=== PATIENT | female | born 1965 | race Caucasian/White ===

== ENCOUNTER → 2019-08-22 12:26 | Outpatient (CLI) | payer BC, SELFPAY ==
--- NOTE | ~2019-08-22 | MM_ITS ---
EXAMINATION: MM screening peter BI w yashira HISTORY: Screening mammogram TECHNIQUE: Craniocaudal and mediolateral oblique 3-D tomosynthesis images were obtained and synthetic 2-D images were generated. CAD analysis was submitted and interpreted. COMPARISON: 05/18/2015, 10/05/2010, 12/04/2008 BREAST PARENCHYMAL COMPOSITION: The breasts are heterogeneously dense, which may obscure small masses . FINDINGS: RIGHT BREAST: There is no evidence of suspicious mass, calcification, or architectural distortion to suggest malignancy. There has been no significant interval change. LEFT BREAST: There are grouped, indeterminate calcifications in the middle third of the slightly uppe r breast. In addition, there is questionable axillary lymphadenopathy. IMPRESSION: 1. Indeterminate left breast calcifications with possible axillary adenopathy. 2. Additional mammographic views and possible breast ultrasound are recommended. BI-RADS Category 0: Incomplete: Needs additional imaging evaluation. Reviewed, dictated and finalized at location A. E SLITTER AND INSPECTOR IMPRESSION: 1. Indeterminate left breast calcifications with possible axillary adenopathy. 2. Additional mammographic views and possible breast ultrasound are recommended . BI-RADS Category 0: Incomplete: Needs additional imaging evaluation.
== END ==
PROVIDERS: PCP Internal Medicine; Visit Provider Internal Medicine
DX: Z12.31 Encounter for screening mammogram for malignant neoplasm of breast (principal); R92.8 Other abnormal and inconclusive findings on diagnostic imaging of breast
CPT/HCPCS: 77063; 77067

== ENCOUNTER → 2019-09-09 08:32 | Outpatient (CLI) | payer BC, SELFPAY ==
--- NOTE | ~2019-09-09 | MMUS_ITS ---
EXAMINATION: MM diagnostic mammo unilat LT, US breast LT complete HISTORY: Follow-up left breast calcifications and axillary adenopathy TECHNIQUE: Additional 3-D tomosynthesis images of the left breast were performed and synthetic 2-D im ages were generated. CAD analysis was submitted and interpreted. High resolution left breast ultrasou nd was performed. COMPARISON: 08/22/2019 FINDINGS: MAMMOGRAPHIC FINDINGS: Breast composed of scattered areas of fibroglandular density. There is a cluster of pleomorphic calci fications in the upper central aspect of the left breast, middle third. There is a small mass in the lower outer quadrant of the left breast containing calcifications near the nipple measuring 5 mm. Left breast ultrasound: At 1:00, 5 cm from the nipple, there is a hypoechoic mass with oval configuration, parallel orientati on with echogenic hilum measuring 5 mm, compatible compatible with intramammary lymph node. At 2:00, 10 cm from the nipple, there is a hypoechoic mass with effacement of the fatty hilum measuring 1.6 x 1.6 x 1.3 cm, suspicious for pathologic lymph node. At 3:00, 3 cm from the nipple, there is a 5 mm be nign-appearing complicated cysts. At 11:00, 3 cm from the nipple, there is a poorly circumscribed hyp oechoic mass with irregular margins and marginal vascularity measuring 5 x 4 x 5 mm. IMPRESSION: 1. Clustered pleomorphic left breast calcifications. Stereotactic left breast biopsy recommended. 2. Abnormal sonographic masses in the left breast at 2:00, 10 cm from the nipple and 11:00, 3 cm from the nipple. Ultrasound-guided biopsy of these masses recommended. BI-RADS CATEGORY 4-SUSPICIOUS ABNORMALITY Reviewed, dictated and finalized at location A. FOOD SALES ASSISTANT IMPRESSION: 1. Clustered pleomorphic left breast calcifications. Stereotactic left breast b iopsy recommended. 2. Abnormal sonographic masses in the left breast at 2:00, 10 cm from the nippl e and 11:00, 3 cm from the nipple. Ultrasound-guided biopsy of these masses rec ommended. BI-RADS CATEGORY 4-SUSPICIOUS ABNORMALITY
== END ==
PROVIDERS: PCP Internal Medicine; Visit Provider Internal Medicine
DX: R92.8 Other abnormal and inconclusive findings on diagnostic imaging of breast (principal)
CPT/HCPCS: 76641; 77065

== ENCOUNTER 2020-08-30 12:47 | Emergency (ER) | payer BC, SELFPAY ==
[2020-08-30 12:48] VITALS: BP 141/82; PULSE 105; RESP 20; TEMP 36.2; O2SAT 99
--- NOTE | 2020-08-30 13:00 | ED.ABDPAIN ---
HPI - Abdominal Pain General Chief Complaint: Abdominal Pain Stated Complaint: left flank pain Time Seen by Provider: 08/30/20 12:54 Source: patient Mode of arrival: ambulatory Limitations: no limitations History of Present Illness HPI narrative: A 54-year-old female comes into the emergency department with complaints of pain starting in her left lower back. Patient states this happened when she was sitting on the couch. She states that it was a strong stabbing/grabbing pain. Patient denies any radiation of the pain. She denies any pain going into her abdominal cavity. She stated when it started it slowly started to go up her lower back. Patient denies any nausea, vomiting any dysuria, fever or chills. Related Data Allergies Allergy/AdvReac Type Severity Reaction Status Date / Time No Known Allergies Allergy Unverified 05/14/18 11:06 Review of Systems Review of Systems: Narrative: CONSTITUTIONAL: Denies fever, chills, or sweats. EYES: Denies visual changes, redness, or discharge. ENT: Denies rhinorrhea, congestion, sore throat, or otalgia. CARDIOVASCULAR: Denies chest pain, palpitations, or edema. RESPIRATORY: Denies cough or dyspnea. GASTROINTESTINAL: Denies abdominal pain, nausea, vomiting, or diarrhea. GENITOURINARY: Denies dysuria or hematuria. SKIN: Denies rash or itching. MUSCULOSKELETAL: Denies joint pain, or myalgia. Endorses low back pain on the left NEUROLOGIC: Denies headache, numbness, dizziness, or weakness. PSYCHIATRIC: Denies anxiety or depression. [facility] Social History Social History Gender identity (if verbalized by the patient): Female Exam Narrative: Exam Narrative: GENERAL: Well-appearing, well-nourished, and in no acute distress. HEAD: Normocephalic, atraumatic. EYES: PERRLA and EOMI. ENT: Nares clear, no rhinorrhea or epistaxis. Mucous membranes moist. NECK: Supple. No adenopathy or masses. No carotid bruits or JVD CHEST: Clear to auscultation. No respiratory distress. No wheezes rales or rhonchi HEART: Regular rate and rhythm. No murmur heard. Normal peripheral pulses. ABDOMEN: Soft, nontender, nondistended, normal active bowel sounds. EXTREMITIES: Normal range of motion. No edema. TTP at the bruising rotoleft lower back over the PSIS and going towards the lateral aspect of the lower back. SKIN: Warm, dry, no rash. NEURO: No focal deficits. Alert and oriented x3. PSYCH: Normal mood and affect. Course Vital Signs Vital signs: Vital Signs Temperature 36.2 C L 08/30/20 12:48 Pulse Rate 105 H 08/30/20 12:48 Respiratory Rate 20 08/30/20 12:48 Blood Pressure 141/82 H 08/30/20 12:48 Pulse Oximetry 99 08/30/20 12:48 Temperature 36.2 C L 08/30/20 12:48 Pulse Rate 105 H 08/30/20 12:48 Respiratory Rate 20 08/30/20 12:48 Blood Pressure 141/82 H 08/30/20 12:48 Pulse Oximetry 99 08/30/20 12:48 MDM - Abdominal Pain MDM Narrative Medical decision making narrative: By time I had interviewed the patient shortly after she was roomed she admitted that she had taken a hydrocodone tablet left over from 8 dental procedure. Patient states that this had apparently kicked and she was feeling much better. Patient is denying pain currently. She states that initially it was a 10 out of 10, it is now down to a 2 out of 10. Discussed other possible etiologies with the patient, including possible abdominal pathology or kidney stones. Patient had no CVA tenderness, nor abdominal tenderness. The tenderness seemed isolated to the quadratus lumborum area on the left. Her pain does appear to be musculoskeletal in origin. At this time I do not feel the patient warrants any urine, blood or imaging studies. Discussed this at length with the patient, she does agree. She states that she is feeling much better, will take a prescription for anti-inflammatories and muscle relaxers and is ready to go home. Discharge Plan Discharge Clinica
[2020-08-30 13:54] VITALS: BP 136/76; PULSE 97; RESP 19; O2SAT 100
== END 2020-08-30 13:56 | disposition home or self-care (01) ==
LOC: ANHED 13:19
PROVIDERS: Emergency Provider Emergency Medicine; PCP Internal Medicine
DX: M62.830 Muscle spasm of back (principal)
CPT/HCPCS: 99283

== ENCOUNTER 2020-10-19 12:21 | Inpatient (IN) | payer BC, SELFPAY ==
--- NOTE | ~2020-10-19 | XR_ITS ---
EXAMINATION: XR chest 1V portable INDICATION: History of breast cancer TECHNIQUE: Portable AP chest at 1657 hours COMPARISON: None available FINDINGS: The lungs are free of acute opacities. There is no pleural effusion or pneumothorax. The ca rdiomediastinal silhouette is normal. IMPRESSION: 1. No acute cardiopulmonary abnormality. Reviewed, dictated and finalized at location A.
--- NOTE | ~2020-10-19 | XR_ITS ---
EXAMINATION: XR ankle RT min 3V DATE: 10/19/2020 12:40 INDICATION: Right ankle pain. TECHNIQUE: 4 views of right ankle were obtained. COMPARISON: None. FINDINGS: There is a transverse fracture of distal fibula with medial aspect of the fracture line 10 mm distal to the level of the tibial plafond in near-anatomic alignment. There is mild osteoarthritis of talonavicular joint. There are enthesophytes at the posterior and plantar aspects of calcaneal tu berosity. Ankle soft tissue swelling is noted. IMPRESSION: 1. Transverse fracture of lateral malleolus. Reviewed, dictated and finalized at location A.
--- NOTE | ~2020-10-19 | XR_ITS ---
EXAMINATION: XR ankle LT min 3V DATE: 10/19/2020 12:40 INDICATION: Left ankle pain post fall TECHNIQUE: Anteroposterior, oblique and lateral views of the left ankle were obtained. COMPARISON: None. FINDINGS: There is an oblique fracture through the distal fibula with a fracture plane exiting medially near th e level of the tibiotalar joint. There is 4 mm posterolateral displacement. Transverse fracture acros s the medial malleolus also at the level of the tibiotalar joint line. There is mild varus angulation resulting in distraction along the medial margin of the fracture with separation of the cortices ana rosa sures approximately 7-8 mm following 1-2 mm separation of the cortical margins along the articular si de of the fracture. Corresponding slight lateral subluxation of the talar dome with respect to the ti bial plafond and with mild widening of the cephalad aspect of the medial clear space. No fracture of the posterior malleolus or talar dome. Joint spaces at the left ankle and visualized mid and hindfoot appear relatively preserved. Moderate-sized Achilles and plantar calcaneal spurs. There is talar angel k along the dorsal neck of the talus. There is however no evident tarsal coalition. Soft tissue swell ing about the ankle and lower calf. IMPRESSION: 1. Mildly displaced fractures of the left medial and lateral malleoli in a dodson B2 injury pattern. Reviewed, dictated and finalized at location B. IMPRESSION: 1. Mildly displaced fractures of the left medial and lateral malleoli in a webe r B2 injury pattern.
--- NOTE | ~2020-10-19 | XR_ITS ---
EXAMINATION: XR surgery orthopedic EXAM DATE: 10/22/2020 12:36 INDICATION: Left ankle ORIF. TECHNIQUE: Fluoroscopy used during XR surgery orthopedic performed by Dr. Kt Irizarry MD. Rad iologist was not present for the imaging or procedure. Total fluoroscopic time of 1.1 minutes. A tot al of 3 images obtained for the exam. The DAP for this procedure was 0.027 mGym2. FINDINGS: Images of the left ankle demonstrate a lateral fibular plate with supporting screws bridgi ng a fibular metaphyseal fracture. There is also medial malleolar base fracture with supporting screw . Distal tibiofibular syndesmotic repair anchors. Correlate with procedure note. IMPRESSION: Fluoroscopy used during left ankle ORIF. Reviewed, dictated and finalized at location A.
[2020-10-19 12:23] VITALS: BP 140/80; PULSE 99; RESP 20; TEMP 36.8; O2SAT 100
--- NOTE | 2020-10-19 13:42 | ED.GENADULT ---
HPI - General Adult General Chief complaint: Extremity Injury, Lower Stated complaint: ankle Time Seen by Provider: 10/19/20 12:37 Source: patient Mode of arrival: EMS Limitations: no limitations History of Present Illness HPI narrative: Patient presents with chief complaint of bilateral ankle pain left worse than right after walking around falling. Patient explains she was able to bear some weight on the right ankle but none on the left. Patient states due to the pain they called 911 to come to the emergency department. Patient reports 3 years ago she fractured her left ankle but it did not require surgical repair and she was managed by Dr. Coronado. Patient reports past medical history of breast cancer in remission and stress incontinence. Related Data Home Medications Medication Instructions Recorded Confirmed letrozole 2.5 mg PO QPM 10/19/20 10/19/20 tolterodine 4 mg PO HS 10/19/20 10/19/20 Allergies Allergy/AdvReac Type Severity Reaction Status Date / Time No Known Allergies Allergy Verified 10/19/20 15:48 Review of Systems Review of Systems: Narrative: CONSTITUTIONAL: Denies fever, chills, or sweats. EYES: Denies visual changes, redness, or discharge. ENT: Denies rhinorrhea, congestion, sore throat, or otalgia. CARDIOVASCULAR: Denies chest pain, palpitations, or edema. RESPIRATORY: Denies cough or dyspnea. GASTROINTESTINAL: Denies abdominal pain, nausea, vomiting, or diarrhea. GENITOURINARY: Denies dysuria or hematuria. SKIN: Denies rash or itching. MUSCULOSKELETAL: Reports bilateral ankle pain denies back pain, joint pain, or myalgia. NEUROLOGIC: Denies headache, numbness, dizziness, or weakness. PSYCHIATRIC: Denies anxiety or depression. [facility] Past Medical History Medical History (Updated 10/19/20 @ 16:58 by MEENA Swain) Breast cancer 36 treatments of radiation Completed end of February Closed left ankle fracture Closed right ankle fracture Fallen bladder Throat cancer Chemotherapy 2008 Throat mass Surgical History Surgical History (Updated 10/19/20 @ 16:50 by MEENA Swain) H/O lumpectomy December 2019 at [facility] (2 lumps on the left, 1 lump on the right) History of hysterectomy 2002 Hx of tonsillectomy 2007 Social History Social History (Updated 10/19/20 @ 16:47 by MEENA Swain) Social History: Patient lives at home with her family. 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 She works for the [employer]. Smoking status: Never smoker Alcohol intake: never Substance use: never Living arrangements: with family Additional living arrangements comments: /Daughter Occupation/Education: occupation Additional occupation/education comments: [employer] Gender identity (if verbalized by the patient): Female Sexual Orientation (if Verbalized by the Patient): Straight or Heterosexual Spiritual care concerns: No Agree to blood products: Yes Exam Narrative: Exam Narrative: GENERAL: Well-appearing, well-nourished, and in no acute distress. HEAD: Normocephalic, atraumatic. EYES: PERRLA and EOMI. CHEST: Clear to auscultation. No respiratory distress. No wheezes rales or rhonchi HEART: Regular rate and rhythm. No murmur heard. Normal peripheral pulses. EXTREMITIES: Pain and swelling to bilateral ankles left worse than right. The swelling on the right is to the lateral malleolus swelling on the left is bilateral. Dorsalis pedis pulses intact bilaterally. There is no open wounds. Normal range of motion. No edema. SKIN: Warm, dry, no rash. NEURO: No focal deficits. Alert and oriented x3. PSYCH: Normal mood and affect. Course Vital Signs Vital signs: Vital Signs Temperature 98.2 F 10/19/20 12:23 Pulse Rate 99 10/19/20 12:23 Respiratory Rate 20 10/19/20 12:23 Blood Pressure 140/80 10/19/20 12:23 Pulse Oximetry 100 10/19/20 12:23 Temperature 98.5 F 04
[2020-10-19 15:18] VITALS: BP 133/76; PULSE 93; RESP 16; O2SAT 99
[2020-10-19] MEDS: MORPHINE SULFATE (*CRX) 4 MG/ML INJ IV PUSH (15:26)
--- NOTE | 2020-10-19 15:40 | ADMGEN ---
This patient, Nani Gonsalves [facility], was admitted to 2 Medical Room 240-01. Patient/family oriented to hospital policies and general routines including ID bracelet, bed and alarms, visiting hours, pain management, procedures, bathroom and other care routines, personal items, smoking policy, room service/diet, and visiting hours. Information on how to activate the Rapid Response Team has been discussed. Patient/Family are encouraged to report perceived risks to care and to ask questions if they do not understand what they are told or what they should do.
[2020-10-19 15:54] VITALS: BP 143/65; PULSE 93; RESP 16; TEMP 36.9; O2SAT 100
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
[2020-10-19] MEDS: MORPHINE SULFATE (*CRX) 2 MG/ML INJ IV PUSH (17:03)
[2020-10-19] MEDS: DOCUSATE SODIUM 100 MG CAPSULE PO (17:08)
[2020-10-19] MEDS: LETROZOLE (*CHEMO) 2.5 MG TABLET PO (18:19)
[2020-10-19] MEDS: HYDROcodone/acetaminophen (*CRX) 5-325 MG TABLET 1 TAB PO ×2 (18:20→22:45)
[2020-10-19] MEDS: TOLTERODINE TARTRATE LA 4 MG CAP.ER.24H PO (20:48)
[2020-10-19 22:00] VITALS: BP 133/75; PULSE 88; RESP 18; TEMP 36.7; O2SAT 97
[2020-10-20 06:00] VITALS: BP 125/76; PULSE 98; RESP 16; TEMP 36.7; O2SAT 97
[2020-10-20] MEDS: HYDROcodone/acetaminophen (*CRX) 5-325 MG TABLET 1 TAB PO (07:06)
[2020-10-20] MEDS: DOCUSATE SODIUM 100 MG CAPSULE PO ×2 (07:47→17:44)
[2020-10-20] MEDS: MORPHINE SULFATE (*CRX) 2 MG/ML INJ IV PUSH ×2 (09:54→13:24)
--- NOTE | 2020-10-20 09:55 | PCPTNOTE ---
Attempted PT evaluation this AM, patient having increased pain and still waiting for CAM boot to perform transfers. Will try back later in morning.
--- NOTE | 2020-10-20 10:21 | PC.NURSE ---
On 10/20/20, the student, [Shayy Garcia ], provided care and completed [facility] documentation on this patient. I have reviewed the student's documentation and agree with the findings.
--- NOTE | 2020-10-20 10:50 | PM.PNORT ---
Progress Note: A&P Assessment and Plan (1) Closed left ankle fracture: Qualifiers: Encounter type: initial encounter Qualified Code(s): S82.892A - Other fracture of left lower leg, initial encounter for closed fracture Code(s): S82.892A - Other fracture of left lower leg, initial encounter for closed fracture Status: Acute Assessment and Plan: Continue PT/OT. NWB LLE. Fall Risk. Ice. Continue pain control. Elevate LLE on pillows. Continue splint. Pending improvement in pain control, recommend mobilization with PT/OT. Patient will require surgical intervention pending improvement in swelling. Discussed nonoperative and operative treatment options with the patient. The patients questions were answered. The patient desires operative treatment. Discussed ORIF Left Trimalleolar Ankle Fracture Risks of surgery including but not limited to neurovascular damage, wound complications, blood clot, pulmonary embolus, stroke, myocardial infarction, anesthetic risks up to and including were reviewed. Continued pain and possible dysfunction were explained. No guarantees were offered. The patient understands and wishes to proceed. Plan: ORIF Left Trimalleolar Ankle Fracture by Dr. Irizarry. NPO at midnight . Continue pain control, ice. PT/OT in the interim. NWB LLE. PWB RLE (2) Closed right ankle fracture: Qualifiers: Encounter type: initial encounter Qualified Code(s): S82.891A - Other fracture of right lower leg, initial encounter for closed fracture Code(s): S82.891A - Other fracture of right lower leg, initial encounter for closed fracture Status: Acute Assessment and Plan: Patient transitioned to fracture boot today to the RLE. Continue pain control. Ice. Elevate on pillows. PT/OT. PWB with Fracture Boot RLE. Walker. Continue conservative treatment at this time. (3) Bilateral ankle fractures: Qualifiers: Encounter type: initial encounter Fracture type: closed Qualified Code(s): S82.891A - Other fracture of right lower leg, initial encounter for closed fracture; S82.892A - Other fracture of left lower leg, initial encounter for closed fracture Code(s): S82.891A - Other fracture of right lower leg, initial encounter for closed fracture; S82.892A - Other fracture of left lower leg, initial encounter for closed fracture Status: Acute (4) Breast cancer: Qualifiers: Breast location: unspecified site of breast Estrogen receptor status: unspecified Patient sex: female Laterality: bilateral Qualified Code(s): C50.911 - Malignant neoplasm of unspecified site of right female breast; C50.912 - Malignant neoplasm of unspecified site of left female breast Code(s): C50.919 - Malignant neoplasm of unspecified site of unspecified female breast Status: Inactive Assessment and Plan: Patient is currently in remission. She is taking oral chemotherapy daily. Medication resumed. (5) Fallen bladder: Code(s): N81.10 - Cystocele, unspecified Status: Inactive Assessment and Plan: Continue medication. Subjective Subjective Date/Time Seen: 10/20/20 0930 Patient laying in bed in pain. Reports significant left ankle pain. Inability to work with PT this AM due to pain. Last pain pill given at 0800. Discussed with RN, recommended ibuprofen or IV morphine as ordered. No new complaints. Review of Systems Constitutional: Constitutional: Reports no additional constitutional complaints, Denies chills, Denies fatigue, Denies fever(s), Denies headache(s) and Denies weakness Eyes: Eyes: Denies change in vision ENT: Reports Normal hearing present and Denies headache(s) Cardiovascular: Cardiovascular: Denies chest pain and Denies dyspnea Respiratory: Respiratory: Denies cough, Denies dyspnea and Denies wheezing Gastrointestinal: Gastrointestinal: Denies constipation, Denies diarrhea, Denies nausea a
[2020-10-20] MEDS: IBUPROFEN IV 400 MG in SODIUM CHLORIDE 0.9% IV 100 ML 200 MG IVPB (13:29)
[2020-10-20 14:00] VITALS: BP 141/65; PULSE 90; RESP 16; TEMP 36.3; O2SAT 95
[2020-10-20] MEDS: HYDROcodone/acetaminophen (*CRX) 7.5-325 MG TABLET 1 TAB PO ×2 (15:45→20:24)
--- NOTE | 2020-10-20 16:05 | PM.PNORT ---
Progress Note: A&P Assessment and Plan (1) Closed right ankle fracture: Qualifiers: Encounter type: initial encounter Qualified Code(s): S82.891A - Other fracture of right lower leg, initial encounter for closed fracture Code(s): S82.891A - Other fracture of right lower leg, initial encounter for closed fracture Status: Acute Assessment and Plan: patient fit with fracture boot. May be weight-bearing as tolerated. Continue with edema control. Physical therapy / occupational therapy for transfers. Plan for continued conservative treatment. (2) Closed trimalleolar fracture of left ankle: Qualifiers: Encounter type: initial encounter Qualified Code(s): S82.852A - Displaced trimalleolar fracture of left lower leg, initial encounter for closed fracture Code(s): S82.852A - Displaced trimalleolar fracture of left lower leg, initial encounter for closed fracture Status: Acute Assessment and Plan: Left ankle trimalleolar fracture with displacement. Complicated by right ankle injury and difficulty with weight-bearing, mobilization. Now with posttraumatic edema. Operative and non operative treatment discussed with patient. Discussed the instability and displacement. Indications for surgery reviewed. She would like to proceed. We discussed open reduction internal fixation once her edema is under control and swelling allows. Continue with ice and elevation and nonweightbearing. Pain management improved with modification to pain medication regimen. Subjective Subjective Date/Time Seen: 10/20/20 16:05 patient seen and examined. Agree with orthopedic history and physical, assessment and plan to date. Patient was fitted with fracture boot for the right ankle. Complains of pain left ankle with any motion. Review of Systems Constitutional: Constitutional: Reports no additional constitutional complaints, Denies chills, Denies fatigue, Denies fever(s), Denies headache(s) and Denies weakness Eyes: Eyes: Denies change in vision ENT: Reports Normal hearing present and Denies headache(s) Cardiovascular: Cardiovascular: Denies chest pain and Denies dyspnea Respiratory: Respiratory: Denies cough, Denies dyspnea and Denies wheezing Gastrointestinal: Gastrointestinal: Denies constipation, Denies diarrhea, Denies nausea and Denies vomiting Genitourinary: Genitourinary: Denies hematuria, Denies dysuria and Denies urinary urgency Musculoskeletal: Musculoskeletal: Reports as per HPI, Denies numbness and Denies tingling Integumentary/Breasts: Skin/Breast: Reports other ( History of breast cancer) Neurologic: Reports as per HPI, Reports Normal hearing present, Denies headache(s), Denies numbness, Denies tingling and Denies weakness Psychiatric: Psychiatric: Reports no additional psychiatric complaints Endocrine: Endocrine: Reports no additional endocrine complaints and Denies fatigue Hematologic/Lymphatic: Hematologic/Lymphatic: Reports no additional hematologic/lymphatic complaints Allergic/Immunologic: Allergic/Immunologic: Reports no additional allergic/immunologic complaints and Denies wheezing Exam Const: General: comfortable and no acute distress Nutritional Appearance: average body habitus Orientation/consciousness: patient oriented x3 Limitations: no limitations HENMT: Head: normal to inspection Ears: hearing grossly normal bilaterally Face and sinus: normal facial exam Mouth: Yes moist mucous membranes Teeth and gingiva: dentition normal Eyes: General: appearance normal, both eyes and all related structures Conjunctivae: conjunctivae normal Sclera: sclerae normal Pupils: Equal, round and reactive pupils present EOM: EOMs intact bilaterally Neck: Neck: supple and no JVD Chest: Chest palpation & inspection: normal inspection of the chest Resp: Effort & Inspection: normal respiratory effort and able to speak in complete sentences Cardio: Jugular venous distens
--- NOTE | 2020-10-20 16:43 | ECG_ITS ---
Measurements Intervals [place] Rate: 105 P: 40 VT: 168 QRS: 5 QRSD: 90 T: 74 QT: 356 QTc: 471 Interpretive Statements SINUS TACHYCARDIA DELAYED PRECORDIAL R/S TRANSITION NONSPECIFIC T-WAVE ABNORMALITY- HIGH LATERAL LEADS ABNORMAL ECG Electronically Signed On 10-21-2020 19:12:27 CDT by José Luis Ozuna D.O.
[2020-10-20] MEDS: LETROZOLE (*CHEMO) 2.5 MG TABLET PO (17:44)
[2020-10-20] MEDS: TOLTERODINE TARTRATE LA 4 MG CAP.ER.24H PO (20:25)
[2020-10-20 22:00] VITALS: BP 143/74; PULSE 98; RESP 20; TEMP 36.2; O2SAT 98
[2020-10-21] MEDS: HYDROcodone/acetaminophen (*CRX) 7.5-325 MG TABLET 1 TAB PO ×3 (02:08→23:47)
[2020-10-21 06:00] VITALS: BP 131/69; PULSE 94; RESP 16; TEMP 36.3; O2SAT 94
[2020-10-21 06:00] LABS: Basophils Percent Auto 0.3 % (0.2-1.2); Eosinophils Absolute Auto 0.1 K/mm3 (0-0.3); Eosinophils Percent Auto 0.9 % (0-4.4); Hematocrit 38.6 % (37.0-47.0); Hemoglobin 12.7 g/dL (12.0-15.0); Immature Granulocyte Absolute 0.03 K/mm3 (0.00-0.031); Immature Granulocyte Percent A 0.3 % (0-0.5); Lymphocytes Absolute Auto 0.71 K/mm3 (0.9-3.2); Mean Corpuscular HGB Conc 32.9 g/dl (32-36); Mean Corpuscular Hemoglobin 30.2 pg (26-34); Mean Corpuscular Volume 91.9 fl (80-100); Mean Platelet Volume 10.2 fl (7.4-10.4); Monocytes Absolute Auto 0.6 K/mm3 (0.1-0.6); Monocytes Percent Auto 6.5 % (2.6-8.5); Neutrophils Absolute Auto 7.5 K/mm3 (1.3-6.7); Platelet Count Result 268 k/mm3 (150-375); Red Cell Distribution Width 13.1 % (11.5-14.5); White Blood Count 8.9 K/mm3 (4.5-10.0)
[2020-10-21 06:01] LABS: INR 0.9; Partial Thromboplastin Time 29.4 SECONDS (22.3-36.8)
[2020-10-21 06:11] LABS: Anion Gap 2 mmol/L (8-16); Blood Urea Nitrogen 18 mg/dL (7-17); Calcium 8.7 mg/dL (8.4-10.2); Carbon Dioxide 32 mmol/L (22-30); Chloride 104 mmol/L (98-107); Estimated CRCL calculation 85 ml/min; Estimated Glomerular Filt Rate > 60; Glucose 114 mg/dL (65-105); Potassium 3.4 mmol/L (3.4-5.0); Sodium 138 mmol/L (137-145)
[2020-10-21] MEDS: ONDANSETRON INJ 4 MG/2 ML VIAL IV PUSH ×2 (07:17→12:12)
[2020-10-21] MEDS: DOCUSATE SODIUM 100 MG CAPSULE PO ×2 (08:25→17:31)
--- NOTE | 2020-10-21 08:52 | PM.PNORT ---
Progress Note: A&P Assessment and Plan (1) Closed trimalleolar fracture of left ankle: Qualifiers: Encounter type: initial encounter Qualified Code(s): S82.852A - Displaced trimalleolar fracture of left lower leg, initial encounter for closed fracture Code(s): S82.852A - Displaced trimalleolar fracture of left lower leg, initial encounter for closed fracture Status: Acute Assessment and Plan: emesis this morning. Will add Zofran to medication regimen. Labs, chest x-ray reviewed and stable for surgery. No EKG completed. Discuss treatment once again with the patient. She desires operative treatment. Plan for open reduction internal fixation once swelling allows. Discussed nonoperative and operative treatment options with the patient. Risks and benefits of each as well as alternatives were reviewed. All of the patient's questions were answered. The risks of surgery reviewed including but not limited to: Neurovascular damage, wound complication, infection, blood clot, pulmonary embolus, stroke, myocardial infarction, and anesthetic risks up to and including . Continued pain and possible dysfunction were explained. Specific risks of the procedure including later recurrence of deformity. No guarantees were offered. If hardware used, discussed risk of failure/ breakage and possible need for removal. If complications occur, the patient understands the need for further treatment, possible further surgery. Patient verbalizes understanding and wishes to proceed. PLAN: Open reduction internal fixation left ankle fracture (2) Closed right ankle fracture: Qualifiers: Encounter type: initial encounter Qualified Code(s): S82.891A - Other fracture of right lower leg, initial encounter for closed fracture Code(s): S82.891A - Other fracture of right lower leg, initial encounter for closed fracture Status: Acute Assessment and Plan: continue closed treatment. Stable for now. Fracture boot. Subjective Subjective Date/Time Seen: 10/21/20 08:52 Patient with nausea this morning, emesis x1. No change in ankle pain Exam Const: General: comfortable and no acute distress Nutritional Appearance: average body habitus Orientation/consciousness: patient oriented x3 Limitations: no limitations HENMT: Head: normal to inspection Ears: hearing grossly normal bilaterally Face and sinus: normal facial exam Mouth: Yes moist mucous membranes Teeth and gingiva: dentition normal Eyes: General: appearance normal, both eyes and all related structures Conjunctivae: conjunctivae normal Sclera: sclerae normal Pupils: Equal, round and reactive pupils present EOM: EOMs intact bilaterally Neck: Neck: supple and no JVD Chest: Chest palpation & inspection: normal inspection of the chest Resp: Effort & Inspection: normal respiratory effort and able to speak in complete sentences Cardio: Jugular venous distension: no JVD Rate: regular rate Rhythm: regular rhythm Peripheral pulses: Peripheral pulses 2+ throughout GI: Inspection: non-distended GI Palp: Yes Soft to palpation and No Tenderness to palpation present (GI) Neuro: General: gait normal Cranial nerves: Yes Normal hearing present Cognition (Neuro): normal cognition Speech: normal speech Gait exam (Neuro): Unable to assess gait Extrem: Right lower extremity: ankle ( fracture boot in place) Details: tenderness (diffuse ), swelling and abnormal ROM (limited due to splint in place ) and foot Details: normal capillary refill, warmth, vascular exam Details: dorsalis pedis pulse present and normal capillary refill and motor-sensory exam Details: light-touch normal Left lower extremity: lower leg (splint in place ), ankle (splint in place ) Details: tenderness (diffuse ) and abnormal ROM (splint in place ) and foot Details: normal capillary refill, vascular exam Details: dorsalis pedis pulse present and normal capillary refill and motor-sensory
--- NOTE | 2020-10-21 12:50 | PCPTNOTE ---
The PT treatment was unable to be completed this AM due to patient refusal. Patient experiencing high level of pain and nausea. Will attempt PT again later today.
--- NOTE | 2020-10-21 13:00 | PCPTNOTE ---
The PT treatment was unable to be completed this PM due to continued nausea and pain. Will continue per Plan of Care frequency and duration.
[2020-10-21 13:31] VITALS: BP 142/78; PULSE 100; RESP 20; TEMP 36.2; O2SAT 98
--- NOTE | 2020-10-21 13:33 | PC.NURSE ---
On 10/21/20, the student, [Constanza West ], provided care and completed [facility] documentation on this patient. I have reviewed the student's documentation and agree with the findings.
[2020-10-21 14:00] VITALS: BP 142/70; PULSE 90; RESP 18; TEMP 36.3; O2SAT 98
--- NOTE | 2020-10-21 14:58 | PCOTNOTE ---
Attempted to see patient this pm, however unable to complete due to pain. RN notified.
[2020-10-21] MEDS: IBUPROFEN 600 MG TABLET PO (15:04)
--- NOTE | 2020-10-21 16:47 | WPDANESEPP ---
Anes - Eval Pre Procedure Procedure: Operation Date: 10/22/20 11:45 Proposed Procedures p Open Reduction Internal Fixation Left Ankle Fracture - Kt Irizarry MD Date/Time: 10/21/20 16:47 Pre Op Diagnosis: Bilateral ankle fractures Patient Data Age: 55 Gender: F Height: 5 ft 6 in Weight: 82 kg Last Vital Signs Temp 97.2 F L 10/21/20 13:31 Pulse 100 10/21/20 13:31 Resp 20 10/21/20 13:31 BP 142/78 H 10/21/20 13:31 Pulse Ox 98 10/21/20 13:31 Allergies Allergy/AdvReac Type Severity Reaction Status Date / Time No Known Allergies Allergy Verified 10/19/20 15:48 Home Medications Medication Instructions Recorded Confirmed Type letrozole 2.5 mg PO QPM 10/19/20 10/19/20 History tolterodine 4 mg PO HS 10/19/20 10/19/20 History Laboratory Tests 10/21/20 10/21/20 10/21/20 05:00 05:00 05:00 WBC 8.9 K/mm3 K/mm3 (4.5-10.0) RBC 4.20 M/mm3 M/mm3 (4.2-5.4) Hgb 12.7 g/dL g/dL (12.0-15.0) Hct 38.6 % % (37.0-47.0) MCV 91.9 fl fl (80-100) MCH 30.2 pg pg (26-34) MCHC 32.9 g/dl g/dl (32-36) RDW 13.1 % % (11.5-14.5) Plt Count 268 k/mm3 k/mm3 (150-375) MPV 10.2 fl fl (7.4-10.4) Immature Gran % (Auto) 0.3 % % (0-0.5) Neut % (Auto) 84.0 % H % (45.5-73.1) Lymph % (Auto) 8.0 % L % (18.3-44.2) [place] % (Auto) 6.5 % % (2.6-8.5) Eos % (Auto) 0.9 % % (0-4.4) Baso % (Auto) 0.3 % % (0.2-1.2) Lymph # (Auto) 0.71 K/mm3 L K/mm3 (0.9-3.2) [place] # (Auto) 0.6 K/mm3 K/mm3 (0.1-0.6) Eos # (Auto) 0.1 K/mm3 K/mm3 (0-0.3) Baso # (Auto) 0.0 K/mm3 K/mm3 (0.0-0.1) Abs Immat Gran (auto) 0.03 K/mm3 K/mm3 (0.00-0.031) Absolute Neuts (auto) 7.5 K/mm3 H K/mm3 (1.3-6.7) Absolute Nucleated RBC 0.0 K/mm3 K/mm3 (0.0-0.012) Nucleated RBC % 0.0 % % (0.0-0.2) PT 13.0 Seconds Seconds (11.1-14.7) INR 0.9 APTT 29.4 SECONDS SECONDS (22.3-36.8) Sodium 138 mmol/L mmol/L (137-145) Potassium 3.4 mmol/L mmol/L (3.4-5.0) Chloride 104 mmol/L mmol/L (98-107) Carbon Dioxide 32 mmol/L H mmol/L (22-30) Anion Gap 2 mmol/L L mmol/L (8-16) BUN 18 mg/dL H mg/dL (7-17) Creatinine 0.70 mg/dL mg/dL (0.7-1.0) Estim Creat Clear Calc 85 ml/min ml/min Estimated GFR > 60 (59 - ) Glucose 114 mg/dL H mg/dL (65-105) Calcium 8.7 mg/dL mg/dL (8.4-10.2) Patient hx anesthesia problems: none Family hx anesthesia problems: none [facility] Past Medical History Medical History (Updated 10/21/20 @ 16:48 by Chaka Ny CRNA) Bilateral ankle fractures Breast cancer 36 treatments of radiation Completed end of February Closed left ankle fracture Closed right ankle fracture Closed trimalleolar fracture of left ankle Fallen bladder Throat cancer Chemotherapy 2007 Throat mass Surgical History Surgical History H/O lumpectomy December 2019 at [facility] (2 lumps on the left, 1 lump on the right) History of hysterectomy 2002 Hx of tonsillectomy 2008 Social History Social History Social History: Patient lives at home with her family. 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 She works for the [employer]. Smoking status: Never smoker Alcohol intake: never Substance use: never Living arrangements: with family Additional living arrangements comments: /Daughter Occupation/Education: occupation Additional occupation/education comments: [employer] Gender identity (if verbalized by the patient): Female Sexual Orientation (if Verbaliz
[2020-10-21] MEDS: LETROZOLE (*CHEMO) 2.5 MG TABLET PO (17:31)
[2020-10-21] MEDS: TOLTERODINE TARTRATE LA 4 MG CAP.ER.24H PO (21:04)
[2020-10-21 22:00] VITALS: BP 127/64; PULSE 98; RESP 18; TEMP 36.2; O2SAT 96
[2020-10-22] VITALS (14 sets, daily range): BP systolic 123–153; BP diastolic 69–88; PULSE 92–110; RESP 10–18; TEMP 36.3–37.4; O2SAT 92–99; BMI 30.2
--- NOTE | 2020-10-22 07:15 | WPDHPUPDATE1 ---
History and Physical Update Update Date/Time: 10/22/20 07:15 History and Physical has been reviewed, including an updated exam of the patient. There are NO changes in the patient's condition. Risks, benefits, and alternatives have been discussed and questions answered. Patient agrees to proceed with procedure.
[2020-10-22] MEDS: LACTATED RINGERS 1,000 ML 30 ML IV CONT ×2 (10:30→12:44)
--- NOTE | 2020-10-22 10:30 | PC.NURSE ---
To OR per bed, IV intact. Report given to Jen RN.
[2020-10-22] MEDS: SCOPOLAMINE 1.5 MG PATCH TRANSDERM (10:51)
--- NOTE | 2020-10-22 10:52 | P.PNAN_ITS ---
Anes - Initial Pre Proc Eval Procedure: Operation Date: 10/22/20 11:45 Proposed Procedures p Open Reduction Internal Fixation Left Ankle Fracture - Kt Irizarry MD Date/Time: 10/22/20 10:52 Surgeon: Kt Irizarry MD Pre Op Diagnosis: Bilateral ankle fractures Patient Data Age: 55 Gender: F Height: 5 ft 6 in Weight: 85.1 kg Last Vital Signs Temp 36.4 C L 10/22/20 06:00 Pulse 98 10/22/20 06:00 Resp 18 10/22/20 06:00 BP 138/71 10/22/20 06:00 Pulse Ox 96 10/22/20 06:00 Allergies Allergy/AdvReac Type Severity Reaction Status Date / Time No Known Allergies Allergy Verified 10/19/20 15:48 Home Medications Medication Instructions Recorded Confirmed Type letrozole 2.5 mg PO QPM 10/19/20 10/19/20 History tolterodine 4 mg PO HS 10/19/20 10/19/20 History Patient hx anesthesia problems: post op nausea/vomiting Family hx anesthesia problems: none PMFSH Past Medical History Medical History Bilateral ankle fractures Breast cancer 36 treatments of radiation Completed end february Closed left ankle fracture Closed right ankle fracture Closed trimalleolar fracture of left ankle Fallen bladder Throat cancer Chemotherapy 2008 Throat mass Surgical History Surgical History H/O lumpectomy December 2019 at [facility] [place] (2 lumps on the left, 1 lump on the right) History of hysterectomy 2002 Hx of tonsillectomy 2007 Social History Social History Social History: Patient lives at home with her family. 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 She works for the [employer]. Smoking status: Never smoker Alcohol intake: never Substance use: never Living arrangements: with family Additional living arrangements comments: /Daughter Occupation/Education: occupation Additional occupation/education comments: [employer] Gender identity (if verbalized by the patient): Female Sexual Orientation (if Verbalized by the Patient): Straight or Heterosexual Spiritual care concerns: No Agree to blood products: Yes Anes - Eval Final PreProcedure Day of Procedure 10/22/20 10:52 Patient weight: obese Heart: regular rate and rhythm Lungs: clear to auscultation Airway: Mallampati scale class II Neurological: alert and oriented Last oral intake: >/= 8 hours ASA classification: III Emergent: no Anesthetic plan: proceed Anesthesia type and monitoring: general LMA and standard monitoring Informed Consent: The patient's anesthetic plan and its attendant risks and benefits were discussed with the patient/family/POA. Questions were solicited and answers provided to the satisfaction of the patient/family/POA.
[2020-10-22] MEDS: ceFAZolin 2 GM/D5W 50 ML 2 GM/50 ML BAG IVPB (11:10)
[2020-10-22] MEDS: BUPIVACAINE/EPINEPHRINE 0.5% 30 ML VIAL INFILTRATE (11:44)
--- NOTE | 2020-10-22 12:54 | PM.PROC ---
Procedure Note - Detailed Date of procedure: 10/22/20 Pre-op diagnosis: Bilateral ankle fractures Post-op diagnosis: same Procedure performed: Open reduction internal fixation left ankle trimalleolar fracture Description of procedure: Operative indications: Patient is a 55 year-old woman who sustained an injury to the left and right ankle. Radiographs show left distal fibular fracture with displacement. Medial malleolus fracture with displacement and posterior malleolus fracture. Widening of the ankle mortise noted. Patient presents for operative treatment of the left ankle. Plan for conservative treatment of the right ankle fracture. Full discussion of the risks, benefits and alternatives of surgery was had with the patient. Questions answered. Patient verbalizes understanding and wishes to proceed. What was done: After informed consent, the operative extremity was marked in the preoperative holding area. Patient received intravenous antibiotics. Patient was then taken to the operating room and underwent general anesthesia by the anesthesia team. Positioned supine on the operating room table with a soft bump under the ipsilateral hip. A time-out was performed confirming the patient, site of the surgery, operative plan. Lower extremity then prepped and draped in the usual sterile surgical fashion using ChloraPrep skin solution. Foot and ankle exsanguinated and a thigh tourniquet inflated to 250 mmHg. Longitudinal incision made over the lateral ankle distal fibula with a 15 blade knife. Hemostasis controlled with electrocautery. Full-thickness soft tissue flaps developed and the fascia was incised in line with the skin incision. Fracture identified and cleared with a dental pick, irrigation and rongeur. Fracture reduced and held with bone-holding clamp. Image intensification confirmed reduction of the fracture and the ankle mortise. Fixation achieved with intramedullary nail for the fibula. Guide pin placed in the intramedullary canal and verified with image intensification. Over reaming done. Nail inserted to the correct depth. Single cortical distal locking done with 2 screws. Angle drill for the tight rope syndesmosis then placed and verified with image intensification. Tight rope passed and secured. Good alignment of the fibula and the syndesmosis noted. Good alignment and stability of the fracture noted. Image intensification used to confirm reduction of the fracture and placement of the hardware. Medial side then addressed. Longitudinal incision made with a 15 blade knife over the medial malleolus fracture. Hemostasis controlled with electrocautery. Fascia incised in line with skin incision. Periosteum cleared from the medial malleolus fracture. Medial side of the joint inspected and noted to have mild amount of trauma to the chondral surface. Thorough irrigation of the ankle joint and suctioned out. Fracture reduced and provisionally pinned. Fixation achieved with 4.0 mm partially threaded cancellous screws x1 placed in cannulated screw fashion. Image intensification confirmed reduction of the fracture and placement of the hardware. Stress of the ankle performed with good stability of the ankle mortise in all directions. Posterior malleolus noted to be reduced and stable. Wounds thoroughly irrigated with antibiotic solution. Subcutaneous tissue repaired with 000 Monocryl interrupted suture and Skin approximated with erick. Sterile dressings applied followed by bulky dressing and cast. Patient awoken from anesthesia, extubated and taken to the recovery room in stable condition. All sponge, needle and instrument counts correct at the end of the case. Palpable dorsalis pedis pulse noted prior to dressing. Implants: Arthrex Fibulok locked nail with tight rope syndesmosis system, 4.0 mm cannulated screw x1 Anesthesia: WES Surgeon: Kt Irizarry MD Plant Facilities Technician: rehab assistant Estimated blood loss (mL): 10 Tourniquet time (min): 50 Drains:
[2020-10-22] MEDS: fentaNYL CITRATE INJ (*CRX) 100 MCG/2 ML VIAL 25 MCG IV PUSH ×5 (13:23→14:07)
--- NOTE | 2020-10-22 13:42 | SUR.PHASEI ---
[id number] sbar faxed floor notified
--- NOTE | 2020-10-22 14:39 | PCOTNOTE ---
Patient having ankle surgery today. Hold OT services this date. Will need OTR re-assessment prior to continuing skilled therapy treatments. Will attempt to re-assess patient tomorrow.
--- NOTE | 2020-10-22 14:41 | PC.NURSE ---
Returned from OR per bed. Report received from ANDREW Mancera.
--- NOTE | 2020-10-22 15:21 | PCPTNOTE ---
Patient having ankle surgery today. Hold PT services this date. Will need PT re-assessment prior to continuing skilled therapy tomorrow.
[2020-10-22] MEDS: IBUPROFEN 600 MG TABLET PO (16:45)
[2020-10-22] MEDS: LETROZOLE (*CHEMO) 2.5 MG TABLET PO (16:46)
[2020-10-22] MEDS: DOCUSATE SODIUM 100 MG CAPSULE PO (16:46)
[2020-10-22] MEDS: TOLTERODINE TARTRATE LA 4 MG CAP.ER.24H PO (21:03)
[2020-10-22] MEDS: ACETAMINOPHEN 325 MG TABLET 650 MG PO (22:18)
[2020-10-22] MEDS: diphenhydrAMINE HCl CAP 25 MG CAPSULE 50 MG PO (22:18)
[2020-10-23 00:26] VITALS: BP 121/63; PULSE 94; RESP 16; TEMP 36.5; O2SAT 92
[2020-10-23 04:45] VITALS: BP 140/80; PULSE 100; RESP 16; TEMP 36.2; O2SAT 100
[2020-10-23] MEDS: DOCUSATE SODIUM 100 MG CAPSULE PO (08:01)
[2020-10-23] MEDS: IBUPROFEN 600 MG TABLET PO (08:01)
--- NOTE | 2020-10-23 08:26 | PM.PNORT ---
Progress Note: A&P Assessment and Plan (1) Bilateral ankle fractures: Qualifiers: Encounter type: subsequent encounter Fracture type: closed Fracture healing: with routine healing Qualified Code(s): S82.891D - Other fracture of right lower leg, subsequent encounter for closed fracture with routine healing; S82.892D - Other fracture of left lower leg, subsequent encounter for closed fracture with routine healing Code(s): S82.891A - Other fracture of right lower leg, initial encounter for closed fracture; S82.892A - Other fracture of left lower leg, initial encounter for closed fracture Status: Acute Assessment and Plan: Postoperative day 1. Open reduction internal fixation left ankle fracture. Closed treatment for right ankle fracture. Patient overall states feels better. No nausea or vomiting. Cast is well fitting, neurovascular intact. PT/OT today with weight-bearing as tolerated fracture boot on the right side and nonweightbearing on the left side. Pain control reviewed. Plan for discharge home if stable. Subjective Subjective Date/Time Seen: 10/23/20 08:26 Patient awake and alert. Up to chair. Tolerating diet. No complaints of nausea or vomiting. Exam Const: General: comfortable and no acute distress Nutritional Appearance: average body habitus Orientation/consciousness: patient oriented x3 Limitations: no limitations HENMT: Head: normal to inspection Ears: hearing grossly normal bilaterally Face and sinus: normal facial exam Mouth: Yes moist mucous membranes Teeth and gingiva: dentition normal Eyes: General: appearance normal, both eyes and all related structures Conjunctivae: conjunctivae normal Sclera: sclerae normal Pupils: Equal, round and reactive pupils present EOM: EOMs intact bilaterally Neck: Neck: supple and no JVD Chest: Chest palpation & inspection: normal inspection of the chest Resp: Effort & Inspection: normal respiratory effort and able to speak in complete sentences Cardio: Jugular venous distension: no JVD Rate: regular rate Rhythm: regular rhythm GI: Inspection: non-distended GI Palp: Yes Soft to palpation and No Tenderness to palpation present (GI) Neuro: General: gait normal Cranial nerves: Yes Normal hearing present Cognition (Neuro): normal cognition Speech: normal speech Gait exam (Neuro): Unable to assess gait Extrem: Right lower extremity: ankle ( fracture boot in place) Details: tenderness (diffuse ), swelling and abnormal ROM (limited due to splint in place ) and foot Details: normal capillary refill, warmth, vascular exam Details: dorsalis pedis pulse present and normal capillary refill and motor-sensory exam Details: light-touch normal Left lower extremity: lower leg (splint in place ), ankle (cast in place ) and foot Details: normal capillary refill, vascular exam Details: dorsalis pedis pulse present and normal capillary refill and motor-sensory exam light-touch normal Other: moves toes, good sensation to touch throughout, good cap refill Psych: Mental Status: mental status grossly normal Affect: normal affect Objective Data Vital Signs Vital Signs: Vital Signs - 24 hr 10/22/20 10:56 10/22/20 12:50 10/22/20 13:05 Temperature 99.3 F 97.4 F L Pulse Rate 108 H 107 H 101 H Respiratory Rate 18 13 14 Blood Pressure 150/86 H 123/76 139/79 Pulse Oximetry 97 98 98 10/22/20 13:20 10/22/20 13:36 10/22/20 13:50 Temperature Pulse Rate 104 H 97 104 H Respiratory Rate 15 10 L 10 L Blood Pressure 153/82 H 151/76 H 140/74 Pulse Oximetry 93 98 95 10/22/20 14:05 10/22/20 14:20 10/22/20 15:00 Temperature 97.3 F L Pulse Rate 92 93 92 Respiratory Rate 12 14 16 Blood Pressure 125/88 145/83 H 144/81 H Pulse Oximetry 97 96 99 10/22/20 15:15 10/22/20 15:45 10/22/20 16:45 Temperature 97.4 F L 98.4 F 97.6 F Pulse Rate 104 H 101 H 110 H Respiratory Rate 16 16 16 Blood Pressure 144/76 H 129/69 141/73 H Pulse Oximetry 92 98 94 04/0
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
[2020-10-23 09:14] VITALS: O2SAT 98
[2020-10-23 10:00] VITALS: BP 130/60; PULSE 104; RESP 20; TEMP 36.7; O2SAT 97
== END 2020-10-23 13:05 | disposition home or self-care (01) | DRG 494 ==
LOC: ANHED 13:53 → ANH2MED 15:01
PROVIDERS: Admitting Provider Orthopaedic Surgery; Emergency Provider Emergency Medicine; PCP Internal Medicine; Visit Provider Orthopaedic Surgery
PROC: 0QSK04Z Reposition Left Fibula with Internal Fixation Device, Open Approach (ICD-10-PCS; principal; 2020-10-22 11:45)
DX: S82.852A Displaced trimalleolar fracture of left lower leg, initial encounter for closed fracture (principal); S82.61XA Displaced fracture of lateral malleolus of right fibula, initial encounter for closed fracture; N39.3 Stress incontinence (female) (male); N81.10 Cystocele, unspecified; C50.919 Malignant neoplasm of unspecified site of unspecified female breast; Z85.89 Personal history of malignant neoplasm of other organs and systems; Z90.710 Acquired absence of both cervix and uterus; W18.39XA Other fall on same level, initial encounter
CPT/HCPCS: 36415; 71045; 73610; 80048; 85025; 85610; 85730; 93005; 96365; 96374; 96375; 96376; 97161; 97166; 97530; 97535; 99285; A9270; C1713; C1769; G0378; J0690; J1170; J1741; J2250; J2270; J2405; J2704; J3010; J7120

== ENCOUNTER 2022-05-26 07:50 | Outpatient (CLI) | payer BC, SELFPAY ==
[2022-05-26 08:35] LABS: Basophils Percent Auto 0.6 % (0.2-1.2); Eosinophils Absolute Auto 0.1 K/mm3 (0-0.3); Eosinophils Percent Auto 1.8 % (0-4.4); Hemoglobin 14.5 g/dL (12.0-15.0); Immature Granulocyte Absolute 0.02 K/mm3 (0.00-0.031); Immature Granulocyte Percent A 0.3 % (0-0.5); Lymphocytes Absolute Auto 1.16 K/mm3 (0.9-3.2); Lymphocytes Percent Auto 17.6 % (18.3-44.2); Mean Corpuscular HGB Conc 33.7 g/dl (32-36); Mean Corpuscular Hemoglobin 30.2 pg (26-34); Mean Corpuscular Volume 89.6 fl (80-100); Mean Platelet Volume 10.1 fl (7.4-10.4); Monocytes Absolute Auto 0.5 K/mm3 (0.1-0.6); Monocytes Percent Auto 7.3 % (2.6-8.5); Neutrophils Absolute Auto 4.8 K/mm3 (1.3-6.7); Neutrophils Percent Auto 72.4 % (45.5-73.1); Platelet Count Result 326 k/mm3 (150-375); Red Cell Distribution Width 12.9 % (11.5-14.5); White Blood Count 6.6 K/mm3 (4.5-10.0)
[2022-05-26 08:39] LABS: Alanine Aminotransferase 27 U/L (6-35); Albumin Level 4.4 g/dL (3.5-5.1); Alkaline Phosphatase 135 U/L (38-126); Anion Gap 8 mmol/L (8-16); Aspartate Amino Transferase 30 U/L (14-36); Bilirubin,Total 0.7 mg/dL (0.2-1.3); Blood Urea Nitrogen 14 mg/dL (7-17); Calcium 8.9 mg/dL (8.4-10.2); Carbon Dioxide 27 mmol/L (22-30); Chloride 103 mmol/L (98-107); Cholesterol 153 mg/dL (0-200); Estimated Glomerular Filt Rate > 60; Glucose 103 mg/dL (65-110); HDL Direct 51 mg/dL; Potassium 4.1 mmol/L (3.4-5.0); Sodium 138 mmol/L (137-145); Triglycerides 96 mg/dL (<150)
[2022-05-26 08:50] LABS: LDL Cholesterol Direct 79 mg/dL
[2022-05-26 09:10] LABS: Thyroid Stimulating Hormone 0.849 uIU/mL (0.465-4.680)
[2022-05-26 09:53] LABS: Folic Acid 15.9 ng/mL (2.76->20)
== END 2022-05-26 07:51 | disposition home or self-care (01) ==
LOC: ANHLAB 07:52
PROVIDERS: PCP Internal Medicine; Visit Provider Physician Assistant
DX: Z00.00 Encounter for general adult medical examination without abnormal findings (principal)
CPT/HCPCS: 36415; 80053; 80061; 82607; 82746; 84443; 85025

== ENCOUNTER 2023-05-16 15:47 | Inpatient (IN) | payer BC, SELFPAY ==
--- NOTE | ~2023-05-16 | XR_ITS ---
XR chest 2V 05/16/2023 16:38 Indication: Shortness of breath Procedure: PA and lateral views of the chest Comparison: 10/20/2020 Findings: Heart size normal. There is bilateral interstitial infiltrates.. No pleural effusion or pne umothorax. No acute osseous abnormality. Impression: 1: Bilateral interstitial infiltrates which may represent edema or pneumonia. Reviewed, dictated and finalized at location A. Impression: 1: Bilateral interstitial infiltrates which may represent edema or pneumonia.
--- NOTE | ~2023-05-16 | XR_ITS ---
EXAMINATION: XR chest 1V portable DATE: 05/18/2023 05:19 INDICATION: Pulmonary edema. TECHNIQUE: A single frontal view of the chest was obtained. COMPARISON: Chest 2 views 05/16/2023, chest CT 05/16/2023 FINDINGS: There is mild scarring at right lung apex. Ainsley B-lines are noted, consistent mild pulmon ron edema. No pleural effusion or pneumothorax. Cardiomegaly. IMPRESSION: 1. Mild pulmonary edema. 2. Cardiomegaly. Reviewed, dictated and finalized at location E.
--- NOTE | ~2023-05-16 | CT_ITS ---
EXAMINATION: CTA chest PE protocol DATE: 05/16/2023 19:29 CDT INDICATION: Dyspnea TECHNIQUE: Computed tomographic angiography (CTA) of the chest was performed with 100 mL Omnipaque-35 0 intravenous contrast. The dose-length product was 684.21 mGy-cm. Maximum intensity projection 3D-re constructions of the aorta and other arteries were constructed by the technologist on a separate work station. Automated exposure control and iterative reconstruction technique were employed. COMPARISON: None. FINDINGS: Study is technically adequate without evidence for pulmonary embolism. Mediastinal lymphade nopathy. No endobronchial lesions. There is diffuse groundglass opacification with reticulonodular de nsities in the left upper lobe, largest discrete nodule measuring 7 mm. There are scattered smaller n odules in both lungs. There is interlobular septal thickening bilaterally. Gallstones. Cardiomegaly. IMPRESSION: 1. Diffuse bilateral groundglass opacification with areas of reticular nodularity, particularly in th e left upper lobe. There is associated interlobular septal thickening bilaterally. Findings suspiciou s for pulmonary edema versus pneumonia. Small pleural effusions. Recommend follow-up CT and 2-3 month s to assess for resolution. 2: Mediastinal lymphadenopathy, nonspecific. Reviewed, dictated and finalized at location A. IMPRESSION: 1. Diffuse bilateral groundglass opacification with areas of reticular nodulari ty, particularly in the left upper lobe. There is associated interlobular septa l thickening bilaterally. Findings suspicious for pulmonary edema versus pneumo yung. Small pleural effusions. Recommend follow-up CT and 2-3 months to assess f or resolution. 2: Mediastinal lymphadenopathy, nonspecific.
[2023-05-16 15:51] VITALS: BP 167/108; PULSE 109; RESP 20; TEMP 36.3; O2SAT 96
--- NOTE | 2023-05-16 15:54 | ECG_ITS ---
Measurements Intervals [place] Rate: 107 P: 53 CO: 150 QRS: -18 QRSD: 84 T: 77 QT: 360 QTc: 481 Interpretive Statements SINUS TACHYCARDIA POSSIBLE LEFT ATRIAL ENLARGEMENT DELAYED PRECORDIAL R/S TRANSITION BORDERLINE ST-T WAVE ABNORMALITY- HIGH LATERAL LEADS ABNORMAL ECG COMPARED TO ECG 10/20/2020 16:43:14 NO SIGNIFICANT CHANGES Electronically Signed On 05-17-2023 6:47:11 CDT by José Luis Ozuna D.O.
[2023-05-16 16:07] LABS: Basophils Absolute Auto 0.1 K/mm3 (0.0-0.1); Basophils Percent Auto 0.7 % (0.2-1.2); Eosinophils Absolute Auto 0.2 K/mm3 (0-0.3); Eosinophils Percent Auto 1.8 % (0-4.4); Hemoglobin 12.8 g/dL (12.0-15.0); Immature Granulocyte Absolute 0.02 K/mm3 (0.00-0.031); Immature Granulocyte Percent A 0.2 % (0-0.5); Lymphocytes Absolute Auto 1.67 K/mm3 (0.9-3.2); Lymphocytes Percent Auto 20.2 % (18.3-44.2); Mean Corpuscular Hemoglobin 30.2 pg (26-34); Mean Corpuscular Volume 94.3 fl (80-100); Mean Platelet Volume 9.9 fl (7.4-10.4); Monocytes Absolute Auto 0.5 K/mm3 (0.1-0.6); Monocytes Percent Auto 6.4 % (2.6-8.5); Neutrophils Absolute Auto 5.8 K/mm3 (1.3-6.7); Neutrophils Percent Auto 70.7 % (45.5-73.1); Platelet Count Result 281 k/mm3 (150-375); Red Blood Count 4.24 M/mm3 (4.2-5.4); Red Cell Distribution Width 14.7 % (11.5-14.5); White Blood Count 8.3 K/mm3 (4.5-10.0)
[2023-05-16 16:16] LABS: Alanine Aminotransferase 26 U/L (6-35); Albumin Level 4.1 g/dL (3.5-5.1); Alkaline Phosphatase 82 U/L (38-126); Anion Gap 6 mmol/L (8-16); Aspartate Amino Transferase 32 U/L (14-36); Bilirubin,Total 0.4 mg/dL (0.2-1.3); Blood Urea Nitrogen 19 mg/dL (7-17); Carbon Dioxide 26 mmol/L (22-30); Chloride 109 mmol/L (98-107); Estimated CRCL calculation 68 ml/min; Estimated Glomerular Filt Rate > 60; Glucose 102 mg/dL (65-110); Sodium 141 mmol/L (137-145)
[2023-05-16 16:17] LABS: Prothrombin Time 13.5 Seconds (11.1-14.7)
[2023-05-16 16:28] LABS: NT Pro B Type Natriuretic Pept 4060 pg/mL (19.9-100); Troponin I < 0.012 ng/mL (0.000-0.034)
[2023-05-16 17:23] VITALS: BP 142/92; PULSE 101; RESP 19; O2SAT 98
[2023-05-16 18:02] VITALS: BP 131/86; PULSE 105; RESP 24; O2SAT 93
--- NOTE | 2023-05-16 18:23 | ED.GENADULT ---
HPI - General Adult General Chief complaint: Shortness of Breath/Dyspnea Stated complaint: diff breathing Time Seen by Provider: 05/16/23 17:49 Source: patient Mode of arrival: ambulatory Limitations: no limitations History of Present Illness HPI narrative: This is a 57-year-old female who presents to the ED with chief complaint of dyspnea on exertion for the past week. Reports that it is difficult to walk across the room without becoming short of breath. She denies any chest pain whatsoever. Reports that she has had a cough for the last couple of weeks but it is not productive. Denies orthopnea. Denies leg swelling, leg pain, palpitations. States she feels fine when she is just sitting down. Denies fevers, chills, recent viral illness, abdominal pain. Related Data Home Medications Medication Instructions Recorded Confirmed cholecalciferol (vitamin D3) 10 10 mcg PO QAM 05/02/22 05/17/23 mcg (400 unit) capsule diphenhydramine HCl 25 mg capsule 25 mg PO DAILY PRN Allergy Symptoms 05/02/22 05/17/23 (Allergy (diphenhydramine)) evening primrose oil 500 mg capsule 500 mg PO DAILY 05/02/22 05/17/23 ibuprofen 200 mg capsule 200 mg PO Q6H PRN Pain, Mild 05/02/22 05/17/23 vitamin E mixed 1,000 unit capsule 1,000 unit PO QHS 05/05/23 05/17/23 aspirin 325 mg tablet 325 mg PO QAM 05/17/23 05/17/23 tolterodine 4 mg capsule,extended 4 mg PO QHS 05/17/23 05/17/23 release 24 hr Allergies Allergy/AdvReac Type Severity Reaction Status Date / Time No Known Allergies Allergy Verified 05/16/23 17:26 Review of Systems Review of Systems: All systems as dictated in [facility] Past Medical History Medical History B-cell lymphoma Bilateral ankle fractures Breast cancer 36 treatments of radiation Completed end of February Calcification of left breast on mammography Cancer Closed left ankle fracture Closed right ankle fracture Closed trimalleolar fracture of left ankle Fallen bladder GERD (gastroesophageal reflux disease) History of adverse reaction to anesthesia History of chemotherapy (~2007) for throat cancer History of radiation therapy (~2021) 36 treatments for breast cancer Miscarriage (1985) Throat cancer Chemotherapy 2007 Throat mass Thromboembolic disorder Vaginal venereal warts (~1993) removal by laser Wears glasses Surgical History Surgical History H/O breast surgery H/O lumpectomy December 2019 at [facility] (2 lumps on the left, 1 lump on the right) History of ankle surgery (10/22/20) left ankle--3 pins and mikhail in ankle History of ankle surgery History of breast biopsy (~2003) rt breast biopsy--benign History of cervical polypectomy (05/16/02) 05/16/02 hscope d&c/polypectomy--irregular bleeding History of dilation and curettage 1985 suction d&c 05/16/02 hscope d&c/polypectomy--irregular bleeding History of hysterectomy (07/11/02) menometrorrhagia/dysmenorrhea/enlarged uterus History of hysteroscopy History of throat surgery History of tonsillectomy Hx of tonsillectomy (~2008) Family History Family History Mother Diabetes mellitus Heart disease Father Hypertension Father Cerebrovascular accident Hypertension Mother Diabetes mellitus Heart disease Social History Social History Social History: Patient lives at home with her family. 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 She works for the [employer]. Smoking status: Never smoker Alcohol intake: never Alcohol use details: Couple times per year Substance use: never Substance use type: does not use Lack of Transportation: No Lack of Food: Never True Current Housing: I Have Housing Concerned About Future Housing: No Difficulty Paying Gas/[place]risten
[2023-05-16 18:50] VITALS: BP 148/90; PULSE 106; RESP 28; O2SAT 98
[2023-05-16 20:22] LABS: Influenza A QL RT-PCR Negative (Negative); Influenza B QL RT-PCR Negative (Negative); RSV RNA, RT-PCR Negative (Negative); SARS-CoV-2 RNA PCR Negative (Negative)
[2023-05-16] MEDS: AZITHROMYCIN 500 MG/NS 250 ML 500 MG/250 ML BAG 250 MG IVPB (21:31)
[2023-05-16] MEDS: SODIUM CHLORIDE 0.9% IV 250 ML IV CONT (22:03)
--- NOTE | 2023-05-16 23:04 | PC.NURSE ---
PA made aware of patient wanting to stop Azithromycin due to pain. 182 ml out of 250 ml infused before DC.
[2023-05-16 23:50] VITALS: BMI 31.0
[2023-05-16 23:51] VITALS: BP 146/92; PULSE 108; RESP 20; TEMP 36.2; O2SAT 98
[2023-05-17] VITALS (13 sets, daily range): BP systolic 129–149; BP diastolic 79–89; PULSE 97–124; RESP 20; TEMP 36.6–36.8; O2SAT 91–98
--- NOTE | 2023-05-17 | ECHO_ITS ---
Patient Info Name: Nani Jones Age: 57 years : 1965 Gender: Female Ht: 66 in Wt: 190 lbs BSA: 2.03 m2 HR: 102 bpm BP: 133 / 79 mmHg Heart Rhythm: Tachycardia Technical Quality: Good Exam Date: 05/17/2023 3:14 PM Exam Location: Echo Lab Patient Status: Outpatient Admit Date: 05/16/2023 Staff Ordering Physician: Luisito Connor MD Straightening Press Operator: Silvia Buckley RDCS Attending Provider: Elin Peter DO Exam Type: CA echo dop color flow w con Study Info Indications - CHF. ASSESS FOR TYPE. C/F CARDIOMYOPATHY Complete two-dimensional, color flow and Doppler transthoracic echocardiogram is performed with contrast to opacify the left ventricle and to improve the deliniation of the left ventricle endocardial borders. Contrast/Agitated Saline Contrast/Ag. Saline: Definity Amount: 2.00 ml Administered By: Silvia Buckley RDCS Existing IV Access: Yes IV Access Condition: patent with no signs of infiltration Summary 1. Left ventricular chamber dimension is mildly enlarged. 2. Left ventricular systolic function is severely reduced, estimated at 20-25%. 3. There is no increased left ventricular wall thickness. 4. The left ventricular diastolic function is abnormal. 5. Left atrial chamber dimension is mildly enlarged. 6. There is moderate mitral valve regurgitation. 7. There is mild tricuspid valve regurgitation. Left Ventricle Left ventricular chamber dimension is mildly enlarged. Left ventricular systolic function is severely reduced, estimated at 20-25%. There is no increased left ventricular wall thickness. The left ventricular diastolic function is abnormal. Right Ventricle Right ventricular chamber dimension is normal. Right ventricular systolic function is normal. Left Atria Left atrial chamber dimension is mildly enlarged. Right Atria Right atrial chamber dimension is normal. Atrial Septum Intact interatrial septum visualized by color flow imaging. Aortic Valve The aortic valve is trileaflet. There is no aortic valve sclerosis. There is no aortic valve stenosis. There is trace aortic valve regurgitation. Pulmonic Valve The pulmonic valve is normal. There is no pulmonic valve stenosis. There is trace pulmonic regurgitation. Mitral Valve The mitral valve has normal leaflets. There is no mitral valve stenosis. There is moderate mitral valve regurgitation. Tricuspid Valve The tricuspid valve leaflets are normal. There is no significant tricuspid valve stenosis. There is mild tricuspid valve regurgitation. No pulmonary hypertension, estimated pulmonary arterial systolic pressure is 29 mmHg. Pericardium/Pleural The pericardium appears normal. There is trivial pericardial effusion. Inferior Vena Cava Normal inferior vena cava with <50% collapse upon inspiration consistent with elevated right atrial pressure, 10 mmHg. Aorta The aortic root size at the sinus of Valsalva is normal. Left Ventricular Outflow Tract Name Value Normal LVOT 2D LVOT Diameter 1.95 cm LVOT Doppler LVOT Peak Gradient 2 mmHg LVOT Mean Gradient 1 mmHg LVOT VTI
--- NOTE | 2023-05-17 | ADMGEN ---
This patient, Nani [facility], was admitted to 2 Medical Room 250-01. Patient/family oriented to hospital policies and general routines including ID bracelet, bed and alarms, visiting hours, pain management, procedures, bathroom and other care routines, personal items, smoking policy, room service/diet, and visiting hours. Information on how to activate the Rapid Response Team has been discussed. Patient/Family are encouraged to report perceived risks to care and to ask questions if they do not understand what they are told or what they should do.
--- NOTE | 2023-05-17 03:52 | PM.IMHP ---
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 The patient reported that she is a avid walker and really enjoys walking and purposely takes the stairs at work. But back in December she went to [place] for vacation. She developed a cough during vacation that was nonproductive. She reports that that dry cough is kind of lingered since that time. A however she was not overtly short of breath until the last month or so. Then this past week she is getting short of breath even with just walking across the room. She has becoming fatigued and tired at the end of the day due to the shortness of breath. She denies any chest pain or palpitations. She has not noticed any orthopnea or paroxysmal nocturnal dyspnea. She has not had any recent illnesses. Her mother did have onset of an unspecified cardiomyopathy when she was in her early 40s and required a heart transplant by the time she was in her 50s. The patient reports that her weight is been relatively stable. She always have some abdominal protuberance of but seems to be worse in the evening. The patient reports he was post have an outpatient stress test 05/31/2023 but given her worsening symptoms she decided come to the ER. Review of Systems Review of Systems: 12 systems were reviewed with pertinent positives and negatives per HPI. Except as documented in the HPI, all other systems were reviewed and are negative. 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 Bilateral ankle fractures Bladder prolapse Breast cancer 36 treatments of radiation Completed end of February 2020 GERD (gastroesophageal reflux disease) History of adverse reaction to anesthesia History of radiation therapy (~2020) 36 treatments for breast cancer Miscarriage (1985) Thromboembolic disorder Urge urinary incontinence Vaginal venereal warts (~1993) removal by laser Vitamin D deficiency Wears glasses Reading glasses Surgical History Surgical History (Updated 05/17/23 @ 05:46 by Elin Peter DO) H/O lumpectomy December 2019 at [facility] (2 lumps on the left, 1 lump on the right) History of ankle surgery (10/22/20) left ankle--3 pins and mikhail in ankle History of ankle surgery History of cervical polypectomy (05/16/02) 05/16/02 hscope d&c/polypectomy--irregular bleeding History of dilation and curettage 1986 suction d&c 05/16/02 hscope d&c/polypectomy--irregular bleeding History of hysterectomy (07/11/02) menometrorrhagia/dysmenorrhea/enlarged uterus History of hysteroscopy History of tonsillectomy (~2007) Due to B-cell lymphoma Family History Family History Mother Diabetes mellitus Heart disease Father Hypertension Father Cerebrovascular accident Hypertension Mother Diabetes mellitus Heart disease Social History Social History Social History: Patient lives at home with her family. 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 She works for the [employer]. Smoking status: Never smoker Alcohol intake: never Alcohol use details: Couple times per year Substance use: never Substance use type: does not use Lack of Transportation: No Lack of Food: Never True Current Housing: I Have Housing Concerned About Future Housing: No Difficulty Paying Gas/Electric Bills: No Difficulty Paying for Meds: No Currently Unemployed: No Education: Associate Degree Difficulty w/ Childcare or Family Care: No Living ar
[2023-05-17] MEDS: FUROSEMIDE INJ 40 MG/4 ML VIAL IV PUSH ×2 (05:13→17:54)
[2023-05-17] MEDS: ASPIRIN 325 MG TABLET PO (09:44)
[2023-05-17] MEDS: CHOLECALCIFEROL 400 UNITS TABLET (VIT D) PO (09:44)
--- NOTE | 2023-05-17 14:36 | PM.IMPN ---
Progress Note: A&P Assessment and Plan (1) Dyspnea on exertion: Code(s): R06.09 - Other forms of dyspnea Status: Acute (2) Pulmonary edema: Qualifiers: Chronicity: acute Qualified Code(s): J81.0 - Acute pulmonary edema Code(s): J81.1 - Chronic pulmonary edema Status: Acute (3) Calcification of left breast on mammography: Code(s): R92.1 - Mammographic calcification found on diagnostic imaging of breast Status: Acute (4) Cough: Code(s): R05.9 - Cough, unspecified Status: Acute (5) Routine medical exam: Code(s): Z00.00 - Encounter for general adult medical examination without abnormal findings Status: Acute (6) Obesity (BMI 30-39.9): Code(s): E66.9 - Obesity, unspecified Status: Acute (7) Routine medical exam: Code(s): Z00.00 - Encounter for general adult medical examination without abnormal findings Status: Acute (8) Bilateral ankle fractures: Qualifiers: Encounter type: subsequent encounter Fracture healing: with routine healing Fracture type: closed Qualified Code(s): S82.891D - Other fracture of right lower leg, subsequent encounter for closed fracture with routine healing; S82.892D - Other fracture of left lower leg, subsequent encounter for closed fracture with routine healing Code(s): S82.891A - Other fracture of right lower leg, initial encounter for closed fracture; S82.892A - Other fracture of left lower leg, initial encounter for closed fracture Status: Acute (9) B-cell lymphoma: Onset Date: 2007 Code(s): C85.10 - Unspecified B-cell lymphoma, unspecified site Status: Acute (10) Breast cancer: Qualifiers: Breast location: unspecified site of breast Estrogen receptor status: unspecified Patient sex: female Laterality: bilateral Qualified Code(s): C50.911 - Malignant neoplasm of unspecified site of right female breast; C50.912 - Malignant neoplasm of unspecified site of left female breast Code(s): C50.919 - Malignant neoplasm of unspecified site of unspecified female breast Status: Acute Plan 1. CHF f/u echo was given lasix one time in ER BNP 4060, trop neg will not start meds for chf until echo results is not in decompensated chf on room air only has exertional dyspnea 2. Ground Glass opacities covid, influenza a/b, rsv negative Have placed pulmonology consult Will need to order a significant number of tests for autoimmune, infectious causes for exposure. Pt may need pft's but will defer to pulmonology Pt has a hx of BL breast radiation and chemotherapy for breast cancer. 36 treatments to L breast November 2019 and January-February 2020 R breast was only 1 week of treatment twice a day 3. Hx of malignancy Hx of b cell lymphoma as well in 2007, had chemo Hx of breast ca, had chemo and radiation to both breasts, L significantly more than the R 4. HTN Can start her on amlodipine 5 mg until echo results Full code Time Spent With Patient Time: 45 min Subjective Date/time seen: 05/17/23 14:36 Interval history: no significant change in pt's symptoms of exertional dyspnea with 1 dose of lasix only reports a dry cough progressing over the past 2 months since she came back from [place]. In March, she started getting increased SOB on exertion. She was scheduled for a stress test outpt 05/31 but did not make it with her PCP. Review of Systems Review of Systems: see above. pt denies chest pain. denies fever/chills/ weight loss/night sweats Exam Narrative: GENERAL: Well-appearing, well-nourished, and in no acute distress. HEAD: Normocephalic, atraumatic. EYES: PERRLA and EOMI. ENT: Nares clear, no rhinorrhea or epistaxis.? Mucous membranes moist.? Oropharynx without tonsillar hypertrophy exudate or other lesions. NECK: Supple.? No adenopathy or masses.? CHEST: BL rhonchi mild on mid lung exam. Decreased bs bl at bases 96% on room air.
[2023-05-17] MEDS: PERFLUTREN LIPID MICROSPHERES 1.5 ML VIAL DILUTED TO 10 ML TOTAL VOLUME IV PUSH (15:49)
--- NOTE | 2023-05-17 17:12 | IVDEFINITY ---
Prior to administration of IV Definity the patient was educated on the risks and benefits of the imaging enhancing agent including potential adverse side effects. The patient verbalized understanding. Allergies were verified. No exclusion criteria were identified and at least one of the following inclusion criteria were met: 1) physician request, 2) patient technically difficult to image (per the [place] [employer]chocardi[employer] guidelines of two or more segments not discernable within the apical view), or 3) questionable left ventricular function. ?
[2023-05-17] MEDS: levoFLOXacin 750 MG/D5W 150 ML 750 MG/150 ML BAG 100 MG IVPB (17:55)
--- NOTE | 2023-05-17 18:20 | ECG_ITS ---
Measurements Intervals [place] Rate: 118 P: [place]: 0 QRS: -13 QRSD: 86 T: 83 QT: 354 QTc: 497 Interpretive Statements SINUS TACHYCARDIA WITH TRANSIENT ATRIAL TACHYCARDIA DELAYED PRECORDIAL R/S TRANSITION BORDERLINE ST-T WAVE ABNORMALITY- HIGH LATERAL LEADS BASELINE ARTIFACT- I, II, III, AVR, AVL, AVF, V2 ABNORMAL ECG COMPARED TO ECG 05/16/2023 15:58:21 TRANSIENT ATRIAL TACHYCARDIA NOW PRESENT Electronically Signed On 05-17-2023 19:17:41 CDT by José Luis Ozuna D.O.
[2023-05-17] MEDS: DOXYCYCLINE 100 MG/NS 100 ML 100 MG/100 ML BAG IVPB (19:54)
[2023-05-17] MEDS: METOPROLOL TARTRATE 25 MG TABLET PO (19:54)
[2023-05-17] MEDS: TOLTERODINE TARTRATE LA 4 MG CAP.ER.24H PO (19:55)
[2023-05-18] VITALS (13 sets, daily range): BP systolic 120–130; BP diastolic 60–83; PULSE 81–111; RESP 14–20; TEMP 36.2–36.4; O2SAT 92–97
--- NOTE | 2023-05-18 02:30 | PCRCNOTE ---
Apnea link not completed due to instructions for while on pap unit. Patient does not have any orders for a pap unit, nor has her own.
[2023-05-18 06:23] LABS: Anion Gap 8 mmol/L (8-16); Blood Urea Nitrogen 19 mg/dL (7-17); CRP 0.9 mg/dL (<1.0); Calcium 9.1 mg/dL (8.4-10.2); Carbon Dioxide 29 mmol/L (22-30); Chloride 104 mmol/L (98-107); Creatine Kinase 66 U/L (30-135); Estimated CRCL calculation 74 ml/min; Estimated Glomerular Filt Rate > 60; Glucose 107 mg/dL (65-110); Magnesium 2.2 mg/dL (1.6-2.3); Potassium 3.7 mmol/L (3.4-5.0); Sodium 141 mmol/L (137-145)
[2023-05-18 06:29] LABS: Erythrocyte Sedimentation Rate 2 mm/hr (0-20)
[2023-05-18 06:56] LABS: Rheumatoid Factor < 12.0 IU/ML (<12)
--- NOTE | 2023-05-18 10:46 | PM.CNPUL ---
Assessment and Plan Assessment and plan (1) Pulmonary edema: Qualifiers: Chronicity: acute Qualified Code(s): J81.0 - Acute pulmonary edema Code(s): J81.1 - Chronic pulmonary edema Status: Acute Assessment and Plan: Patient presents with 2.5 month history of dry cough, 2 month history worsening dyspnea on exertion, chest x-ray and CT scan consistent with fluid overload, BNP 4060 and an echocardiogram with an LVEF of 20-25%. She has no infectious complaints at this time and no evidence of bacterial pneumonia. Her COVID influenza and RSV RT PCR studies are negative. She has no leukocytosis and is afebrile in the hospital. She is currently on room air. of note the patient has a history of a mother with cardiomyopathy requiring a heart transplant. Patient's constellation of symptoms and laboratory results demonstrate a cardiomyopathy with evidence of fluid overload. She has improved with diuresis. Discussed recommendation for cardiology consultation with hospitalist. The patient has no evidence of arthritis, autoimmune disease, hypersensitivity pneumonitis from exposures. She is a never smoker. Serologies for connective tissue disorder autoimmune process have been sent. ESR is 2, CRP is 0.9, rheumatoid factor less than 12, CPK is 66. Remainder of serologies are pending. Plan: Recommend discontinuation of antibiotics at this time. Pending are PRADEEP screen that includes 11 different auto antibodies, an ANCA screen, anti CCP antibody, hypersensitivity pneumonitis panel, aldolase level, and myomarker 3 plus profile. Please call me back if any of these serologies are positive. Discussed with Dr. Connor. Will sign off. Call with questions. History of Present Illness History of Present Illness Consult date: 05/18/23 Chief complaint: Pulmonary Edema Narrative: 05/18/2023: This is a new pulmonary consult for pneumonia. 57-year-old woman. Patient had a history of B-cell lymphoma in 2007 with a mass on her right tonsil. This was surgically removed and she received an unknown chemotherapy every 3 weeks for about 3 months. The patient had yearly scans for 5 years and she had a mass on her left tonsil and that was surgically removed but not cancer. After [address] scan was without change and she was cleared and has had no symptoms since then. In November of 2019 the patient was found to have bilateral T1 N0 invasive ductal carcinoma and underwent bilateral partial mastectomies. Postoperatively she received right breast radiation 2 times a day for 7 days and daily treatment of the left breast for 5 weeks. A few weeks after she finished this radiation she started on letrozole 2.5 mg a day. She saw her breast surgeon on 12/20/2022 and has had clear mammograms and no evidence of recurrent cancer by physical exam since then. The plan was to continue letrozole. On 01/14/2023 the patient was having hot flashes with the warm weather and she discontinued her Letrolozole and the flashes got better Patient had no respiratory illnesses as a child or through high school. She had no respiratory limitations up until . At that time she could walk 2 miles over 45 minutes and had no respiratory limitations in her activity of daily living. She could walk 24 steps without problems. Towards the end of February patient developed a dry cough. She had no phlegm and no hemoptysis. The cough would wake her up at night and occasionally she would have wheezing. On 03/17/23 she noted that she had difficulty walking up steps. She could only walk up 12 steps instead of 24 then would have to stop and rest. She then developed worsening dyspnea on exertion such that prior to admission she could only walk 30 yd. She had no exertional chest pain. She denied fever, chills, rigors, phlegm production or hemoptysis. Patient is a never smoker. Patient has 2 pillow orthopnea with no change in the last year, nocturia 1-2 times a night with no christiano
[2023-05-18] MEDS: ASPIRIN 325 MG TABLET PO (10:51)
[2023-05-18] MEDS: CHOLECALCIFEROL 400 UNITS TABLET (VIT D) PO (10:51)
[2023-05-18] MEDS: METOPROLOL TARTRATE 25 MG TABLET PO ×2 (10:52→13:30)
[2023-05-18] MEDS: FUROSEMIDE INJ 40 MG/4 ML VIAL IV PUSH (10:52)
[2023-05-18] MEDS: ENOXAPARIN 40 MG/0.4 ML SYRINGE SUB-Q (10:52)
--- NOTE | 2023-05-18 11:37 | PM.IMPN ---
Progress Note: A&P Assessment and Plan (1) Breast cancer: Qualifiers: Breast location: unspecified site of breast Estrogen receptor status: unspecified Patient sex: female Laterality: bilateral Qualified Code(s): C50.911 - Malignant neoplasm of unspecified site of right female breast; C50.912 - Malignant neoplasm of unspecified site of left female breast Code(s): C50.919 - Malignant neoplasm of unspecified site of unspecified female breast Status: Acute (2) B-cell lymphoma: Onset Date: 2007 Code(s): C85.10 - Unspecified B-cell lymphoma, unspecified site Status: Acute (3) Dyspnea on exertion: Code(s): R06.09 - Other forms of dyspnea Status: Acute (4) Pulmonary edema: Qualifiers: Chronicity: acute Qualified Code(s): J81.0 - Acute pulmonary edema Code(s): J81.1 - Chronic pulmonary edema Status: Acute (5) CHF (congestive heart failure): Code(s): I50.9 - Heart failure, unspecified Status: Acute (6) Atrial fibrillation with RVR: Code(s): I48.91 - Unspecified atrial fibrillation Status: Acute Plan 1. CHF f/u echo was given lasix one time in ER BNP 4060, trop neg will not start meds for chf until echo results is not in decompensated chf on room air only has exertional dyspnea 05/18: See echo from above. significant for LVEF 20-25%, with no LV wall thickness, abnl lv diastolic dysfunction, mildly enlarged LV. RA/RV nl. C/f stunned myocardium, takotsubo or viral cardiomyopathy affecting the LV, vs ischemic CM. afib rvr yesterday contraindicates dobutamine stress echo. Recommend NM myocardial perfusion scan with SPECT (they do not have PET here apparently from the orders). With/without exercise as pt can tolerate. Scan will be tomorrow after pt has been npo, no caffeine for 8 hrs. Cardiology consult will be placed to see pt tomorrow. Started pt on lasix 40 qd, metoprolol tartrate 50 mg bid (increased for tachycardia), entresto low dose (12-13) bid BP permitting. She is not on O2 at rest. She still has signs of CHF on exam. 2. Ground Glass opacities covid, influenza a/b, rsv negative Have placed pulmonology consult Will need to order a significant number of tests for autoimmune, infectious causes for exposure. Pt may need pft's but will defer to pulmonology Pt has a hx of BL breast radiation and chemotherapy for breast cancer. 36 treatments to L breast November 2019 and January-February 2020 R breast was only 1 week of treatment twice a day 05/17: Discussed pt with pulmonology, Dr. Kt Pierre. Appreciate consultation. BMP, BNP in the AM. BID lasix 40 mg ivp. CXR in the AM. Levaquin 750 mg/day. Dr. Pierre will order serologies for atypical pneumonia. 05/18: See note from Dr. Pierre, pulmonology. serologies for connective tissue disorder sent. esr/crp low. RF negative, cpk negative. PRADEEP, ANCA, anti ccp, hypersensitivity panel, aldolase, myomarker 3 plus pending. Unlikely a pulmonary cause. Abx will be stopped. Noted to be allergic to levaquin and azithromycin- had flushing and afib rvr during administration. 3. Hx of malignancy Hx of b cell lymphoma as well in 2007, had chemo Hx of breast ca, had chemo and radiation to both breasts, L significantly more than the R 4. HTN 05/18: tx for CHF with metop and entresto and lasix will suffice. 5. AFib RVR 05/17: Pt developed tachycardia to the 160's after levaquin injection around 640 pm. Stat EKG showed afib rvr. Already received lasix. Said she felt flushed and was having an allergic reaction. Afib rvr self resolved when I went to evaluate. Was in SR with PAC's between 80-90's and afib 110's. Started PO metop 25 bid and IV metop 5 mg q6 prn. Will switch to cef/doxy. Said she had the same reaction to azithromycin. 05/18: only in sinus tach to the 100's. Afib rvr is a contraindication to dobutamine stress echo. Does not need AC right now. 6. Allergies 05/18: Noted to be allergic to levaquin and azithromycin
[2023-05-18] MEDS: SACUBITRIL/VALSARTAN 12-13 MG TABLET 1 TAB PO (13:30)
--- NOTE | 2023-05-18 14:15 | PM.CNCAR ---
Assessment and Plan Assessment and plan (1) Acute systolic (congestive) heart failure: Code(s): I50.21 - Acute systolic (congestive) heart failure Status: Acute Assessment and Plan: Patient is acute onset of CHF dating back to around Labor Day. She is feeling better. This is probably nonischemic in etiology but cannot exclude ischemia at this point. Will keep her NPO after midnight. I talked to her about a coronary angiogram to define her coronary anatomy. She verbalized understanding and is in agreement. Will perform an angiogram tomorrow. In the meantime, we will initiate standard heart failure treatment including starting carvedilol 3.125 mg p.o. b.i.d., Entresto 24/26 mg p.o. b.i.d., Jardiance 10 mg daily. Will add spironolactone as blood pressure tolerates and up titrate her other regimen as able. LifeVest at discharge. She is in agreement (2) Breast cancer: Qualifiers: Breast location: unspecified site of breast Estrogen receptor status: unspecified Patient sex: female Laterality: bilateral Qualified Code(s): C50.911 - Malignant neoplasm of unspecified site of right female breast; C50.912 - Malignant neoplasm of unspecified site of left female breast Code(s): C50.919 - Malignant neoplasm of unspecified site of unspecified female breast Status: Acute Assessment and Plan: Status post lumpectomy and radiation bilaterally (3) B-cell lymphoma: Onset Date: 2007 Code(s): C85.10 - Unspecified B-cell lymphoma, unspecified site Status: Acute Assessment and Plan: She did receive chemo but uncertain as to type/drug (4) Cardiomyopathy: Code(s): I42.9 - Cardiomyopathy, unspecified Status: Acute Assessment and Plan: Severe, new onset. Uncertain etiology. Possibly familial. Will check a TSH and free T4 level, ferritin as initial workup for nonischemic etiologies. (5) Family history of cardiomyopathy: Code(s): Z82.49 - Family history of ischemic heart disease and other diseases of the circulatory system Status: Acute Assessment and Plan: Mother had a heart transplant History of Present Illness History of Present Illness Consult date/time: 05/18/23 14:15 Requesting physician: Luisito Connor MD Consult reason: Other (CHF, cardiomyopathy) Reason For Visit: Pulmonary Edema Narrative: Date of service 05/18/2023 Reason for consultation: Pulmonary edema, CHF, cardiomyopathy Requesting provider: Dr. Connor History: Patient is a 57-year-old female who does not have known cardiac history. She presented to hospital with worsening shortness of breath. She states around Labor Day she started developed cough. Prior to that she could walk and do what she wanted. She would walk several miles a day. Around Labor Day she developed a cough and shortly thereafter she noticed that she would have some shortness of breath on climbing up a couple flights of stairs. This progressively worsened to the point that now she will become short of breath while even doing simple things like walking across the parking lot. She is not dyspneic by doing her ADLs. She does describe a dry cough as well as occasional wheeziness. She does states that she probably had a viral illness this summer but nothing particularly stands out. She did have COVID in October. Chest x-ray showed pulmonary edema. She denies any paroxysmal nocturnal dyspnea, orthopnea, syncope, presyncope, palpitations, chest pain or edema. She has been given some furosemide and has diuresed and is already feeling better even by walking around the hallways. Echocardiogram was performed which showed ejection fraction in the 20s and Cardiology consultation was requested. She does have a family history of cardiomyopathy as her mother received a heart transplant. Father of myocardial infarction and had diabetes the 870 a. Patient herself also had bilateral breast cancer and is status
[2023-05-18] MEDS: carvediloL 3.125 MG TABLET PO (20:21)
[2023-05-18] MEDS: SACUBITRIL/VALSARTAN 24-26 MG TABLET 1 TAB PO (20:21)
[2023-05-18] MEDS: TOLTERODINE TARTRATE LA 4 MG CAP.ER.24H PO (20:22)
[2023-05-19] VITALS (30 sets, daily range): BP systolic 77–121; BP diastolic 46–82; PULSE 73–99; RESP 12–21; TEMP 36.3–36.9; O2SAT 90–98
[2023-05-19] MEDS: carvediloL 3.125 MG TABLET PO ×2 (08:55→20:51)
[2023-05-19] MEDS: CHOLECALCIFEROL 400 UNITS TABLET (VIT D) PO (08:55)
[2023-05-19] MEDS: SACUBITRIL/VALSARTAN 24-26 MG TABLET 1 TAB PO ×2 (08:55→20:51)
[2023-05-19] MEDS: FUROSEMIDE 40 MG TABLET PO (08:55)
[2023-05-19] MEDS: ASPIRIN 81 MG CHEWABLE TABLET PO (08:55)
--- NOTE | 2023-05-19 12:58 | WPDCARDPROC ---
Cardiac Cath Procedure Note Date of procedure:: 05/19/23 Performing physician:: Kt Zepeda MD Indication:: newly diagnosed cardiomyopathy Brief clinical history:: this is a 57-year-old woman with history of shortness of breath and found by echo on admission to the hospital to have severe left ventricular systolic dysfunction. She has no prior cardiac history. Interestingly the patient's mother has had a cardiac transplant for cardiomyopathy Procedure Procedure performed:: coronary angiography left ventriculography Sedation/Medication given:: fentanyl 50 mg Versed 2 mg case start time 12:40 p.m. case end time 12:53 p.m. sedation provided by Shanthi Oliver RN, trained observer Access site:: right femoral artery Estimated blood loss:: 20 cc Procedure note:: patient was brought to the cardiac catheterization lab in the postabsorptive state where the right femoral triangle was prepared and draped in the usual fashion. 15 cc of 1% lidocaine was infiltrated for local anesthesia. The right femoral artery was then punctured using the modified Seldinger technique and a 5 Nigerien vascular sheath was placed. After this left heart catheterization was carried out. I used a 5 Nigerien angled pigtail catheter to document left-sided hemodynamics and inject the left ventriculogram in the MAHMOOD projection. Following this standard FL4 catheter and JR4 catheters were used to engage inject the left right coronary arteries standard projections. Cineangiograms were then reviewed and the case was terminated. An angiogram was performed to the femoral artery through the sheath after which I determined to have the sheath with direct manual compression. He tolerated the procedure well there were no apparent complications. 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 Findings:: Hemodynamics: Central aortic pressure 98/60 left ventricle 98/2 end-diastolic pressure 10 there is no gradient on pullback across the aortic valve. Left ventricle: The LV is mildly enlarged there is severe global systolic hypokinesis is identified in all segments the global ejection fraction is 20-25% by visual estimation. The left main coronary artery is nicely patent the left anterior descending is a medium caliber artery extending down to the apex. The LAD and its branches are angiographically normal. Circumflex is a medium caliber vessel giving rise to the marginal branches. The circumflex and its branches are smooth and angiographically normal. The right coronary artery is dominant to the posterior circulation it is medium in caliber and angiographically smooth and unremarkable in appearance Conclusion:: 1. right coronary dominant circulation with no evidence of coronary artery disease 2. mild LV enlargement with severe global systolic dysfunction that low ejection fraction. Diagnosis is nonischemic cardiomyopathy Kt Zepeda MD [facility]
--- NOTE | 2023-05-19 15:37 | PM.IMPN ---
Progress Note: A&P Assessment and Plan (1) Breast cancer: Qualifiers: Breast location: unspecified site of breast Estrogen receptor status: unspecified Laterality: bilateral Patient sex: female Qualified Code(s): C50.911 - Malignant neoplasm of unspecified site of right female breast; C50.912 - Malignant neoplasm of unspecified site of left female breast Code(s): C50.919 - Malignant neoplasm of unspecified site of unspecified female breast Status: Acute (2) B-cell lymphoma: Onset Date: 2007 Code(s): C85.10 - Unspecified B-cell lymphoma, unspecified site Status: Acute (3) Dyspnea on exertion: Code(s): R06.09 - Other forms of dyspnea Status: Acute (4) Pulmonary edema: Qualifiers: Chronicity: acute Qualified Code(s): J81.0 - Acute pulmonary edema Code(s): J81.1 - Chronic pulmonary edema Status: Acute (5) CHF (congestive heart failure): Code(s): I50.9 - Heart failure, unspecified Status: Acute (6) Atrial fibrillation with RVR: Code(s): I48.91 - Unspecified atrial fibrillation Status: Acute Plan # CHF; treate with lasix. BNP 4060, trop neg presented with exertional dyspnea. echow ith LVEF 20-25%. with no LV wall thickness, abnl lv diastolic dysfunction, mildly enlarged LV. RA/RV nl. C/f stunned myocardium, takotsubo or viral cardiomyopathy affecting the LV, vs ischemic CM. stress test today. entresto started cardiologoy cosnulted.cath today with no evidence of cad. nonischemic cardiomyopathy # Ground [place] opacities covid, influenza a/b, rsv negative pulmonary consulted. # hx of BL breast radiation and chemotherapy for breast cancer. 36 treatments to L breast November 2019 and January-February 2020 R breast was only 1 week of treatment twice a day on levaquin. serologies for connective tissue disorder sent. esr/crp low. RF negative, cpk negative. PRADEEP, ANCA, anti ccp, hypersensitivity panel, aldolase, myomarker 3 plus pending. Unlikely a pulmonary cause. Abx will be stopped. Noted to be allergic to levaquin and azithromycin- had flushing and afib rvr during administration. # Hx of malignancy Hx of b cell lymphoma as well in 2007, had chemo Hx of breast ca, had chemo and radiation to both breasts, L significantly more than the R # HTN 05/18: tx for CHF with metop and entresto and lasix will suffice. # AFib RVR 05/17: Pt developed tachycardia to the 160's after levaquin injection around 640 pm. Stat EKG showed afib rvr. Already received lasix. Said she felt flushed and was having an allergic reaction. Afib rvr self resolved when I went to evaluate. Was in SR with PAC's between 80-90's and afib 110's. Started PO metop 25 bid and IV metop 5 mg q6 prn. Will switch to cef/doxy. Said she had the same reaction to azithromycin. 05/18: only in sinus tach to the 100's. Afib rvr is a contraindication to dobutamine stress echo. Does not need AC right now. # Allergies 05/18: Noted to be allergic to levaquin and azithromycin- had flushing and afib rvr during administration. # Full code Subjective Date/time seen: 05/19/23 15:37 Interval history: no overnight events sob is impoved. went for cath today. Review of Systems Review of Systems: All systems reviewed & are unremarkable except as noted in HPI and below Exam Narrative: GENERAL: Well-appearing, well-nourished, and in no acute distress. HEAD: Normocephalic, atraumatic. EYES: PERRLA and EOMI. ENT: Nares clear, no rhinorrhea or epistaxis.? Mucous membranes moist.? NECK: Supple.? No adenopathy or masses.? CHEST: coarse breath sounds, Decreased bs bl at bases HEART: mild trace LE edema, regular rate, regular rhythm, no murmur. ABDOMEN: Soft, nontender, nondistended, normal active bowel sounds. MSK: Normal range of motion.? trace le edema SKIN: Warm, dry, no rash. NEURO: Alert and oriented x3. No focal deficits.? PSYCH: Normal mood and affect. Objective Data Vital Si
[2023-05-19] MEDS: TOLTERODINE TARTRATE LA 4 MG CAP.ER.24H PO (20:51)
[2023-05-20] VITALS (14 sets, daily range): BP systolic 101–116; BP diastolic 60–75; PULSE 65–101; RESP 14–20; TEMP 36.5–36.8; O2SAT 95–100
[2023-05-20 04:59] LABS: Basophils Absolute Auto 0.1 K/mm3 (0.0-0.1); Basophils Percent Auto 0.5 % (0.2-1.2); Eosinophils Absolute Auto 0.1 K/mm3 (0-0.3); Eosinophils Percent Auto 1.3 % (0-4.4); Hemoglobin 14.9 g/dL (12.0-15.0); Immature Granulocyte Absolute 0.03 K/mm3 (0.00-0.031); Immature Granulocyte Percent A 0.3 % (0-0.5); Lymphocytes Absolute Auto 1.55 K/mm3 (0.9-3.2); Lymphocytes Percent Auto 16.3 % (18.3-44.2); Mean Corpuscular HGB Conc 32.4 g/dl (32-36); Mean Corpuscular Hemoglobin 30.1 pg (26-34); Mean Corpuscular Volume 92.9 fl (80-100); Mean Platelet Volume 9.9 fl (7.4-10.4); Monocytes Absolute Auto 0.7 K/mm3 (0.1-0.6); Monocytes Percent Auto 7.4 % (2.6-8.5); Neutrophils Absolute Auto 7.1 K/mm3 (1.3-6.7); Neutrophils Percent Auto 74.2 % (45.5-73.1); Platelet Count Result 311 k/mm3 (150-375); Red Blood Count 4.95 M/mm3 (4.2-5.4); Red Cell Distribution Width 14.6 % (11.5-14.5); White Blood Count 9.5 K/mm3 (4.5-10.0)
[2023-05-20 05:08] LABS: Alanine Aminotransferase 25 U/L (6-35); Alkaline Phosphatase 74 U/L (38-126); Anion Gap 5 mmol/L (8-16); Aspartate Amino Transferase 25 U/L (14-36); Bilirubin,Total 0.7 mg/dL (0.2-1.3); Blood Urea Nitrogen 26 mg/dL (7-17); Calcium 8.7 mg/dL (8.4-10.2); Carbon Dioxide 33 mmol/L (22-30); Chloride 100 mmol/L (98-107); Estimated CRCL calculation 67 ml/min; Estimated Glomerular Filt Rate > 60; Glucose 113 mg/dL (65-110); Magnesium 2.4 mg/dL (1.6-2.3); Potassium 3.3 mmol/L (3.4-5.0); Sodium 138 mmol/L (137-145)
[2023-05-20] MEDS: CHOLECALCIFEROL 400 UNITS TABLET (VIT D) PO (08:29)
[2023-05-20] MEDS: SACUBITRIL/VALSARTAN 24-26 MG TABLET 1 TAB PO ×2 (08:29→21:00)
[2023-05-20] MEDS: FUROSEMIDE 40 MG TABLET PO (08:29)
[2023-05-20] MEDS: ASPIRIN 81 MG CHEWABLE TABLET PO (08:29)
[2023-05-20] MEDS: EMPAGLIFLOZIN 10 MG TABLET PO (08:30)
[2023-05-20] MEDS: carvediloL 3.125 MG TABLET PO ×2 (08:30→20:59)
--- NOTE | 2023-05-20 09:27 | PM.PNCARD ---
Progress Note: A&P Assessment and Plan (1) Acute systolic (congestive) heart failure: Code(s): I50.21 - Acute systolic (congestive) heart failure Status: Acute Assessment and Plan: Patient is acute onset of CHF dating back to around Labor Day. She is feeling better. This is probably nonischemic in etiology but cannot exclude ischemia at this point. Will keep her NPO after midnight. I talked to her about a coronary angiogram to define her coronary anatomy. She verbalized understanding and is in agreement. Continue current doses of carvedilol, Entresto and Jardiance. Will up titrate and add to this regimen as need be and able based upon blood pressure. At present her blood pressure is a little soft and will be unable to increase any further at this point. She is asymptomatic. Awaiting LifeVest. Will reduce her furosemide to 20 mg daily. Her potassium is low today at 3.3 will replace with 40 mEq of potassium chloride p.o. x1 Okay for discharge after LifeVest in place (2) Breast cancer: Qualifiers: Breast location: unspecified site of breast Estrogen receptor status: unspecified Patient sex: female Laterality: bilateral Qualified Code(s): C50.911 - Malignant neoplasm of unspecified site of right female breast; C50.912 - Malignant neoplasm of unspecified site of left female breast Code(s): C50.919 - Malignant neoplasm of unspecified site of unspecified female breast Status: Acute Assessment and Plan: Status post lumpectomy and radiation bilaterally (3) B-cell lymphoma: Onset Date: 2007 Code(s): C85.10 - Unspecified B-cell lymphoma, unspecified site Status: Acute Assessment and Plan: She did receive chemo but uncertain as to type/drug (4) Cardiomyopathy: Code(s): I42.9 - Cardiomyopathy, unspecified Status: Acute Assessment and Plan: Nonischemic etiology. Probably familial (5) Family history of cardiomyopathy: Code(s): Z82.49 - Family history of ischemic heart disease and other diseases of the circulatory system Status: Acute Assessment and Plan: Mother had a heart transplant Subjective Date/time seen: 05/20/23 09:27 Interval history: 57-year-old admitted for shortness of breath and cough. Found to have severe cardiomyopathy. Underwent catheterization yesterday showing no obstructive coronary disease. Date of service 05/20/2023: Feels okay. No groin pain. No chest pain. No shortness of breath. Review of Systems Review of Systems: All systems reviewed & are unremarkable except as noted in HPI and below Constitutional: Constitutional: Denies body ache(s), Denies excessive sweating and Reports lethargy Eyes: Eyes: Denies blurry vision ENT: Reports Normal hearing present Cardiovascular: Cardiovascular: Denies chest pain, Denies diaphoresis and Reports dyspnea on exertion Respiratory: Respiratory: Denies chest congestion and Reports dyspnea on exertion Gastrointestinal: Gastrointestinal: Denies abdominal pain Genitourinary: Genitourinary: Denies hematuria Musculoskeletal: Musculoskeletal: Denies back pain Integumentary/Breasts: Skin/Breast: Denies dry skin Neurologic: Reports Normal hearing present and Denies Abnormal speech present Psychiatric: Psychiatric: Denies anxiety Endocrine: Endocrine: Denies excessive sweating Hematologic/Lymphatic: Hematologic/Lymphatic: Denies easy bleeding Allergic/Immunologic: Allergic/Immunologic: Denies GI upset with certain foods Exam Narrative: Awake alert oriented appears stated age Const: General: comfortable and no acute distress HENMT: Face/Nose/Sinus: Normal nares present Mouth: Yes moist mucous membranes Eyes: General: appearance normal, both eyes and all related structures Sclera: sclerae normal Neck: Neck: no JVD Carotids: no bruits Chest: Other: No reproducible chest wall pain to palpation Resp: Effort & Inspe
--- NOTE | 2023-05-20 15:01 | PM.DS ---
DS: Admitting Diagnosis Discharge Date 05/20/2023 Admitting Diagnosis Shortness of breath DS: Discharge Diagnosis Discharge Diagnosis (1) Breast cancer: Qualifiers: Breast location: unspecified site of breast Estrogen receptor status: unspecified Patient sex: female Laterality: bilateral Qualified Code(s): C50.911 - Malignant neoplasm of unspecified site of right female breast; C50.912 - Malignant neoplasm of unspecified site of left female breast Code(s): C50.919 - Malignant neoplasm of unspecified site of unspecified female breast Status: Acute (2) B-cell lymphoma: Onset Date: 2007 Code(s): C85.10 - Unspecified B-cell lymphoma, unspecified site Status: Acute (3) Dyspnea on exertion: Code(s): R06.09 - Other forms of dyspnea Status: Acute (4) Pulmonary edema: Qualifiers: Chronicity: acute Qualified Code(s): J81.0 - Acute pulmonary edema Code(s): J81.1 - Chronic pulmonary edema Status: Acute (5) CHF (congestive heart failure): Code(s): I50.9 - Heart failure, unspecified Status: Acute (6) Atrial fibrillation with RVR: Code(s): I48.91 - Unspecified atrial fibrillation Status: Acute DS: Summary Hospital Course Hospital Course: # CHF; treate with lasix. BNP 4060, trop neg presented with exertional dyspnea. echo with LVEF 20-25%. with no LV wall thickness, abnl lv diastolic dysfunction, mildly enlarged LV. RA/RV nl. C/f stunned myocardium, takotsubo or viral cardiomyopathy affecting the LV, vs ischemic CM. cardiologoy cosnulted.cath today with no evidence of cad. nonischemic cardiomyopathy Started on Entresto and carvedilol. Add spironolactone as outpatient basis # [place] opacities covid, influenza a/b, rsv negative pulmonary consulted. Autoimmune panel was ordered and will be followed up as an outpatient basis # hx of BL breast radiation and chemotherapy for breast cancer. 36 treatments to L breast November 2019 and January-February 2020 R breast was only 1 week of treatment twice a day on levaquin. serologies for connective tissue disorder sent. esr/crp low. RF negative, cpk negative. PRADEEP, ANCA, anti ccp, hypersensitivity panel, aldolase, myomarker 3 plus pending. Unlikely a pulmonary cause. Abx then stopped Noted to be allergic to levaquin and azithromycin- had flushing and afib rvr during administration. # Hx of malignancy Hx of b cell lymphoma as well in 2007, had chemo Hx of breast ca, had chemo and radiation to both breasts, L significantly more than the R # HTN 05/18: tx for CHF with metop and entresto and lasix will suffice. # AFib RVR 05/17: Pt developed tachycardia to the 160's after levaquin injection around 640 pm. Stat EKG showed afib rvr. Already received lasix. Said she felt flushed and was having an allergic reaction. Afib rvr self resolved when I went to evaluate. Was in SR with PAC's between 80-90's and afib 110's. Started PO metop 25 bid and IV metop 5 mg q6 prn. Will switch to cef/doxy. Said she had the same reaction to azithromycin. 05/18: only in sinus tach to the 100's. Afib rvr is a contraindication to dobutamine stress echo. Does not need AC right now. # Allergies 05/18: Noted to be allergic to levaquin and azithromycin- had flushing and afib rvr during administration. # Full code # nocturnal hypoxemia: Overnight pulse oximetry with SpO2 less than 88% for 140 minutes. AHI 15.7 highly suspicious for sleep apnea could be underlying reason for her cardiomyopathy. She will need a sleep study as an outpatient basis. Due to severe hypoxemia overnight will arrange for oxygen at night at discharge Time Spent with Patient Time attestation: Total time spent providing and/or coordinating discharge services: 35 minutes Exam Narrative: GENERAL: Well-appearing, well-nourished, and in no acute distress. HEAD: Normocephalic, atraumatic. EYES: PERRLA and EOMI. ENT: Nares clear, no rhinorrhea o
[2023-05-20] MEDS: TOLTERODINE TARTRATE LA 4 MG CAP.ER.24H PO (21:00)
[2023-05-21] VITALS: PULSE 80
[2023-05-21 04:00] VITALS: BP 109/67; PULSE 80; PULSE 90; RESP 20; TEMP 36.6; O2SAT 95
--- NOTE | 2023-05-21 07:53 | PM.PNCARD ---
Progress Note: A&P Assessment and Plan (1) Acute systolic (congestive) heart failure: Code(s): I50.21 - Acute systolic (congestive) heart failure Status: Acute Assessment and Plan: Patient is acute onset of CHF dating back to around Day. She is feeling better. This is nonischemic in etiology. Continue current doses of carvedilol, Entresto and Jardiance. Will up titrate and add to this regimen as need be and able based upon blood pressure. At present her blood pressure is a little soft in this morning is between 100 and 120 systolic. She is asymptomatic. Life vest in place (2) Breast cancer: Qualifiers: Breast location: unspecified site of breast Estrogen receptor status: unspecified Patient sex: female Laterality: bilateral Qualified Code(s): C50.911 - Malignant neoplasm of unspecified site of right female breast; C50.912 - Malignant neoplasm of unspecified site of left female breast Code(s): C50.919 - Malignant neoplasm of unspecified site of unspecified female breast Status: Acute Assessment and Plan: Status post lumpectomy and radiation bilaterally (3) B-cell lymphoma: Onset Date: 2007 Code(s): C85.10 - Unspecified B-cell lymphoma, unspecified site Status: Acute Assessment and Plan: She did receive chemo but uncertain as to type/drug (4) Cardiomyopathy: Code(s): I42.9 - Cardiomyopathy, unspecified Status: Acute Assessment and Plan: Nonischemic etiology. Probably familial (5) Family history of cardiomyopathy: Code(s): Z82.49 - Family history of ischemic heart disease and other diseases of the circulatory system Status: Acute Assessment and Plan: Mother had a heart transplant Subjective Date/time seen: 05/21/23 07:53 Interval history: 57-year-old admitted for shortness of breath and cough. Found to have severe cardiomyopathy. Underwent catheterization yesterday showing no obstructive coronary disease. Date of service 05/20/2023: Feels okay. No groin pain. No chest pain. No shortness of breath. Date of service 05/21/2023: Life vest in place. Still has a little cough but no shortness of breath Review of Systems Review of Systems: All systems reviewed & are unremarkable except as noted in HPI and below Constitutional: Constitutional: Denies body ache(s), Denies excessive sweating and Reports lethargy Eyes: Eyes: Denies blurry vision ENT: Reports Normal hearing present Cardiovascular: Cardiovascular: Denies chest pain, Denies diaphoresis and Reports dyspnea on exertion Respiratory: Respiratory: Denies chest congestion and Reports dyspnea on exertion Gastrointestinal: Gastrointestinal: Denies abdominal pain Genitourinary: Genitourinary: Denies hematuria Musculoskeletal: Musculoskeletal: Denies back pain Integumentary/Breasts: Skin/Breast: Denies dry skin Neurologic: Reports Normal hearing present and Denies Abnormal speech present Psychiatric: Psychiatric: Denies anxiety Endocrine: Endocrine: Denies excessive sweating Hematologic/Lymphatic: Hematologic/Lymphatic: Denies easy bleeding Allergic/Immunologic: Allergic/Immunologic: Denies GI upset with certain foods Exam Narrative: Awake alert oriented appears stated age Const: General: comfortable and no acute distress HENMT: Face/Nose/Sinus: Normal nares present Mouth: Yes moist mucous membranes Eyes: General: appearance normal, both eyes and all related structures Sclera: sclerae normal Neck: Neck: no JVD Carotids: no bruits Chest: Other: No reproducible chest wall pain to palpation Resp: Effort & Inspection: normal respiratory effort Auscultation: clear to auscultation bilaterally Cardio: Rate: regular rate Rhythm: regular rhythm Heart sounds: no murmurs GI: Inspection: non-distended Auscultation: normal bowel sounds Skin: General skin exam: normal color Neuro: Cranial nerves: Yes
[2023-05-21 08:04] VITALS: PULSE 83
[2023-05-21 09:08] VITALS: BP 105/68; PULSE 87; O2SAT 98
[2023-05-21 09:10] VITALS: PULSE 89
[2023-05-21] MEDS: ASPIRIN 81 MG CHEWABLE TABLET PO (09:10)
[2023-05-21] MEDS: CHOLECALCIFEROL 400 UNITS TABLET (VIT D) PO (09:10)
[2023-05-21] MEDS: FUROSEMIDE 20 MG TABLET PO (09:10)
[2023-05-21] MEDS: carvediloL 3.125 MG TABLET PO (09:10)
[2023-05-21] MEDS: EMPAGLIFLOZIN 10 MG TABLET PO (09:10)
[2023-05-21] MEDS: SACUBITRIL/VALSARTAN 24-26 MG TABLET 1 TAB PO (09:11)
[2023-05-21 12:49] LABS: ANA Cascade Screen Negative (Negative)
[2023-05-22 01:36] LABS: Pneumococcal Antigen Urine Not Detected (Not Detected)
[2023-05-22 10:54] LABS: Mycoplasma IgM Antibody Titer 48 U/mL (<770)
[2023-05-22 16:28] LABS: ANCA Screen Negative (Negative)
[2023-05-23 02:29] LABS: Legionella pneumophila Ag Ur Not Detected (Not Detected)
[2023-05-23 22:31] LABS: Anti Cyclic Citrullinated Pept <16 Units (<20)
[2023-05-24 05:58] LABS: Aldolase 4.4 U/L (<=8.1)
== END 2023-05-21 11:35 | disposition home or self-care (01) | DRG 286 ==
LOC: ANHED 18:14 → ANH2MED 22:58
PROVIDERS: Emergency Medicine; Internal Medicine; Internal Medicine Cardiovascular Disease; Internal Medicine Pulmonary Disease; Specialist; Admitting Provider Internal Medicine; Emergency Provider Physician Assistant; PCP Physician Assistant; Visit Provider Internal Medicine
PROC: 4A023N7 Measurement of Cardiac Sampling and Pressure, Left Heart, Percutaneous Approach (ICD-10-PCS; CPT 93452; principal; 2023-05-19 13:30)
DX: I11.0 Hypertensive heart disease with heart failure (principal); I50.21 Acute systolic (congestive) heart failure; I42.8 Other cardiomyopathies; I48.91 Unspecified atrial fibrillation; K21.9 Gastro-esophageal reflux disease without esophagitis; N39.41 Urge incontinence; Z20.822 Contact with and (suspected) exposure to COVID-19; R09.02 Hypoxemia; E66.9 Obesity, unspecified; Z68.29 Body mass index [BMI] 29.0-29.9, adult; Z85.3 Personal history of malignant neoplasm of breast; Z85.72 Personal history of non-Hodgkin lymphomas; Z85.89 Personal history of malignant neoplasm of other organs and systems; Z90.710 Acquired absence of both cervix and uterus; Z82.49 Family history of ischemic heart disease and other diseases of the circulatory system; Z86.16 Personal history of COVID-19
CPT/HCPCS: 36415; 71045; 71046; 71275; 80048; 80053; 82085; 82550; 82728; 83735; 83880; 84436; 84443; 84484; 85025; 85610; 85652; 85730; 86036; 86038; 86140; 86200; 86225; 86235; 86331; 86364; 86430; 86606; 86609; 86738; 87040; 87449; 87637; 87899; 93005; 93458; 94762; 96365; 96367; 96372; 96374; 96375; 99285; A9270; C1887; C1894; C8929; G0378; J0456; J0461; J0696; J1644; J1650; J1940; J1956; J2250; J3010; J7040; Q9957; Q9967

== ENCOUNTER 2023-07-28 12:57 | Outpatient (CLI) | payer BC, SELFPAY ==
--- NOTE | 2023-08-21 14:50 | WPDSLEEPSTUD ---
Sleep Study Date of Study: 07/28/23 Ordering Provider: Kt Pierre MD Interpreting Physician: Jaimie Baugh DO Sleep Study Type: Polysomnogram Height: 1.68 m Weight: 80.286 kg Body Mass Index: 28.5 Neck Circumference (inches): 15 [place]: 4 Reason for Sleep Study New onset congestive heart failure Sleep History The patient is a 57-year-old female with new onset cardiomyopathy that had an ApneaLink on 05/18/2023 on room air that showed an oxygen desaturation index of 19.9 and an AHI of 15.7 while she was hospitalized. She had a sleep study ordered by her card grader for evaluation of sleep apnea. The patient denies awakening from sleep short of breath. She rarely awakens at night with heartburn, belching or cough. She frequently snores and is constantly loud enough that others complain. He occasionally has trouble sleeping when she has a cold. She denies waking up gasping for air throughout the night. She denies having breathing problems at night observed by herself or others. She denies sweating excessively at night. She denies having heart palpitations or irregular heartbeats during the night. She denies falling asleep during the day and while driving. She denies sleep paralysis, cataplexy and hypnagogic / hypnopompic hallucinations. She denies having trouble at school or work due to sleepiness. She denies feeling afraid of going to sleep. She denies having nightmares. She occasionally remembers her dreams. She occasionally has thoughts racing through her mind. She denies feeling sad or depressed. She rarely has anxiety. She denies having muscular tension. She occasionally notices parts of her body jerk. She denies kicking during the night. She occasionally has crawling and aching feelings in her legs but denies having leg pain during the night. She denies grinding her teeth during sleep and denies awakening with morning jaw pain. She is rarely bothered by pain during the day and never awakened by pain during the night. She denies waking up feeling stiff in the morning. She occasionally wakes up with sore or achy muscles. She denies waking up with pain in the neck, spine and other joints. The patient goes to bed at 8:30 p.m. on weekdays and between 9-10 p.m. on the weekends. It takes her 15-30 minutes to fall asleep. She wakes up 5-6 times throughout the night to adjust her position and is able to fall asleep relatively quickly. She wakes up at 4:40 a.m. on weekdays and between 6-6:30 a.m. on the weekends. He typically gets 7 hours of sleep per night. She currently lives with her and daughter. She denies consuming any caffeinated beverages within 2 hours of bedtime. She denies engaging in physical exercise before bedtime. She will watch television before falling asleep. She denies taking naps in the afternoon or the evening. She denies consuming caffeinated beverages throughout the day. She denies tobacco, alcohol and recreational drug use. [facility] Past Medical History Medical History B-cell lymphoma (2007) Of the tonsil treated with chemotherapy Bilateral ankle fractures Bladder prolapse Breast cancer 36 treatments of radiation Completed end of February 2020 GERD (gastroesophageal reflux disease) History of adverse reaction to anesthesia History of radiation therapy (~2020) 36 treatments for breast cancer Miscarriage (1985) Thromboembolic disorder Urge urinary incontinence Vaginal venereal warts (~1993) removal by laser Vitamin D deficiency Wears glasses Reading glasses Surgical History Surgical History H/O lumpectomy December 2019 at [facility] (2 lumps on the left, 1 lump on the right) History of ankle surgery (10/22/20) left ankle--3 pins and mikhail in ankle History of ankle surgery History of cervical polypectomy (05/16/02) 05/16/02 hscope d&c/polypectomy--irregula
[2023-08-21 14:57] VITALS: BMI 28.5
== END 2023-07-29 07:32 | disposition home or self-care (01) ==
LOC: ANHCSM 12:59
PROVIDERS: PCP Physician Assistant; Visit Provider Internal Medicine Pulmonary Disease
DX: G47.9 Sleep disorder, unspecified (principal); G47.10 Hypersomnia, unspecified
CPT/HCPCS: 95810

== ENCOUNTER 2023-08-16 08:22 | Outpatient (CLI) | payer BC, SELFPAY ==
--- NOTE | ~2023-08-16 | CT_ITS ---
EXAMINATION: CT diagnostic chest wo con DATE: 08/16/2023 09:01 INDICATION: Cardiomyopathy TECHNIQUE: Computed tomography (CT) of the chest was performed without intravenous contrast. Automate d exposure control and iterative reconstruction technique were employed. Exam dose: 261.36 mGy-cm to chary exam DLP. COMPARISON: 05/18/2023 portable AP chest 05/16/2023 CTA chest FINDINGS: Mild bilateral apical scarring. There is minimal probable postoperative radiation fibrosis the very anterior aspect of the left upper lobe. Left breast surgical clips and/or biopsy markers. Left axillary surgical clip consistent with prior left axillary node dissection 3.7 mm right lower lobe peripheral pulmonary nodular density (series 4 image 70), stable since 2022, possibly a pulmonary granuloma but not definitively characterized. There is interval resolution of the congestive changes and bilateral pulmonary infiltrates and mild p leural effusions since 05/16/2023. Heart size is within normal range. No pericardial or pleural effusion. No hilar or mediastinal mass lesion or lymphadenopathy. No thoracic aortic aneurysm. Normal morphology of the adrenal glands. There is evidence of cholelithiasis. No pericholecystic fluid or fat stranding. No bile duct or pancr eatic duct dilatation. IMPRESSION: Resolution of congestive changes and pleural effusions since 05/16/2023 9 stable approxi mately 3.7 mm right lower lobe pulmonary nodule, not definitively characterize but possibly a small p ulmonary granuloma Postoperative change of the left breast likely related to partial mastectomy, with left axillary lymp h node dissection and probable minimal anterior left upper lobe postoperative radiation pulmonary fib rosis Cholelithiasis Reviewed, dictated and finalized at [facility]. Reviewed, dictated and finalized at [facility]. R PAINT IMPRESSION: Resolution of congestive changes and pleural effusions since 05/16 9 stable approximately 3.7 mm right lower lobe pulmonary nodule, not defi nitively characterize but possibly a small pulmonary granuloma Postoperative change of the left breast likely related to partial mastectomy, w ith left axillary lymph node dissection and probable minimal anterior left uppe r lobe postoperative radiation pulmonary fibrosis Cholelithiasis
== END 2023-08-16 08:23 | disposition home or self-care (01) ==
LOC: ANHIMG 08:24
PROVIDERS: PCP Physician Assistant; Visit Provider Internal Medicine Pulmonary Disease
DX: J81.1 Chronic pulmonary edema (principal); K80.20 Calculus of gallbladder without cholecystitis without obstruction; Z90.12 Acquired absence of left breast and nipple
CPT/HCPCS: 71250

== ENCOUNTER 2023-08-24 09:38 | Outpatient (CLI) | payer BC, SELFPAY | END 2023-08-24 09:39 | disposition home or self-care (01) | LOC: ANHLAB 09:40 | PROVIDERS: PCP Physician Assistant; Visit Provider Physician Assistant | DX: D64.9 Anemia, unspecified (principal) | CPT/HCPCS: 36415; 82728 ==

== ENCOUNTER 2024-06-27 08:04 | Outpatient (CLI) | payer BC, SELFPAY ==
[2024-06-27 08:46] LABS: Hematocrit 44.9 % (37.0-47.0); Hemoglobin 14.6 g/dL (12.0-15.0); Mean Corpuscular HGB Conc 32.5 g/dl (32-36); Mean Corpuscular Hemoglobin 30.7 pg (26-34); Mean Corpuscular Volume 94.5 fl (80-100); Mean Platelet Volume 10.1 fl (7.4-10.4); Platelet Count Result 305 k/mm3 (150-375); Red Blood Count 4.75 M/mm3 (4.2-5.4); White Blood Count 6.3 K/mm3 (4.5-10.0)
[2024-06-27 09:04] LABS: Alanine Aminotransferase 39 U/L (6-35); Albumin Level 4.7 g/dL (3.5-5.1); Alkaline Phosphatase 99 U/L (38-126); Anion Gap 5 mmol/L (4-12); Aspartate Amino Transferase 34 U/L (14-36); Bilirubin,Total 0.6 mg/dL (0.2-1.3); Blood Urea Nitrogen 16 mg/dL (7-17); Calcium 9.6 mg/dL (8.4-10.2); Carbon Dioxide 28 mmol/L (22-30); Chloride 106 mmol/L (98-107); Cholesterol 165 mg/dL (0-200); Estimated Glomerular Filt Rate > 60; Glucose 89 mg/dL (65-110); HDL Direct 58 mg/dL; Potassium 4.2 mmol/L (3.4-5.0); Sodium 139 mmol/L (137-145); Triglycerides 93 mg/dL (<150)
[2024-06-27 09:15] LABS: LDL Cholesterol Direct 75 mg/dL
[2024-06-27 09:28] LABS: Thyroid Stimulating Hormone 0.369 uIU/mL (0.465-4.680)
[2024-06-27 09:34] LABS: Free T4 Free Thyroxine 1.08 ng/dL (0.78-2.19)
== END 2024-06-27 08:05 | disposition home or self-care (01) ==
LOC: ANHLAB 08:05
PROVIDERS: PCP Nurse Practitioner; Visit Provider Nurse Practitioner
DX: Z00.00 Encounter for general adult medical examination without abnormal findings (principal); I42.9 Cardiomyopathy, unspecified; Z85.3 Personal history of malignant neoplasm of breast
CPT/HCPCS: 36415; 80053; 80061; 84439; 84443; 85027

== ENCOUNTER 2025-07-07 07:56 | Emergency (ER) | payer BC, SELFPAY ==
[2025-07-07] VITALS (26 sets, daily range): BP systolic 104–130; BP diastolic 61–83; PULSE 97–130; RESP 13–26; TEMP 36.6–37.8; O2SAT 97–100
--- NOTE | 2025-07-07 08:03 | ECG_ITS ---
Test Date: 2025-07-07 08:07:02 Measurements Intervals [place] Rate: 97 P: 44 IA: 170 QRS: -13 QRSD: 81 T: 88 QT: 343 QTc: 436 Interpretive Statements SINUS RHYTHM POSSIBLE RIGHT VENTRICULAR CONDUCTION DELAY BORDERLINE ST-T WAVE ABNORMALITY- HIGH LATERAL LEADS BASELINE ARTIFACT- II, III, AVF BORDERLINE ECG No previous ECG available for comparison Electronically Signed On 07-07-2025 09:10:55 TASTE TESTER by José Luis Ozuna D.O.
--- OUTSIDE RECORDS SUMMARY | 2025-07-07 08:05 | XMS_ITS ---
Author Organization [facility] Address [address] [place] [id number] Care Team Providers Care Software Engineer Intern Name Role Phone Betty Jha MD PhD Unavailable [phone] Jamaica Smith MD Unavailable [phone] Kevin Randle MD Unavailable [phone] Oneal Roberts MD Unavailable [phone] Ricky Navarro NP Primary Care Provider [phone] Active Problems Problem Noted Date Diagnosed Date Family history of cardiomyopathy 11/03/2023 Nonrheumatic mitral valve regurgitation 11/03/19 24 Chronic systolic congestive heart failure 2023 Nonischemic cardiomyopathy 11/03/2023 Malignant neoplasm of left female breast 024 Bone disorder 02/04/2022 [facility] (current) use of aromatase inhibitors 02/04/2022 Encounter for follow-up exam ination after completed treatment for malignant neoplasm 05/07/2020 History of bilateral breast cancer 05/07/2020 Personal history of irradiation 05/07/2020 Malignant neoplasm of upper- outer quadrant of right breast in female, estrogen receptor positive 12/30/2019 Cancer Staging:Pathologic: pT1b, pN0, G1, ER+, ND+, HER2- - Signed by Chinyere Mccauley MD on 01/05/2020 Malignant neoplasm of overla pping sites of left breast in female, estrogen receptor positive 12/30/2019 Cancer Staging:Pathologic:Stage IA(pT1a, pN0, cM0, G2, ER+, ND+, HER2-) - Signed by Betty Jha MD PhD on 01/14/2020 Current Treatment and Therapy Plans IV Maintenance Therapy Plan* Plan Start Date:03/07/2025 Plan Provider:Oneal Roberts MD Linked Problems Malignant neoplasm of overla pping sites of left breast in female, estrogen receptor positive (HCC) Treatment Medications No medications scheduled. Zoledronic Acid (ZOMETA) Infusion* Plan Start Date:08/05/2022 Plan Provider:Cristina Oliver NP Linked Problems Malignant neoplasm of upper- outer quadrant of right breast in female, estrogen receptor positive (HCC)Malignant neoplasm of overlapping sites of left breast in female, estrogen receptor positive (HCC)Bone disorderLong term (current) use of aromatase inhibitors Treatment Medications No medications scheduled. Past Treatment and Therapy Plans No past plan information found. Radiation Treatments * Course C1 BILAT BRST 20 02/10/2020 - 03/16/2020 Treatment Period Energy Fraction Dose Fractions Total Dose Plans Planned LUOQ BOOST 03/10/2020 - 03/16/2020 300 5 / 1,500 LT BREAST 02/17/2020 - 03/09/2020 266 16 / 4,256 RUOQ APBI 02/10/2020 - 02/14/2020 385 10 / 3,850 Reference Points Delivered LUOQ BOOST 03/10/2020 - 03/16/2020 1,500 LT BREAST dpv 02/17/2020 - 03/09/2020 4,256 PTV [id number] 02/10/2020 - 02/14/2020 3,850 Lifetime Dose Tracking * Chemical Lifetime Dose Automatic Entry Manual Entr y DLP 2,415 mGycm 2,415 mGycm 0 mGycm Resolved Problems Problem Noted Date Diagnosed Date Resolved Date Abnormal mammogram 11/12/2019 0
--- OUTSIDE RECORDS SUMMARY | 2025-07-07 08:06 | XMS_ITS | Encounter Summary ---
Author Organization [facility] Healthcare Address [address] [place] [address] Care Team Providers Care Client Business Manager Name Role Phone Kt Don MD Primary Care Provider [phone] Betty Jha MD PhD Unavailable [phone] Jeff Mason MD PhD Unavailable [phone] Jamaica Smith MD Unavailable [phone] Zaire Ferguson Primary Care Provider Zaire Ferguson Primary Care Provider Kevin Randle MD Unavailable [phone] Renetta Rick MD Unavailable [phone] Oneal Roberts MD Unavailable + [phone] Ricky Navarro NP Primary Care Provider [phone] Encounter Details Date Type Department Care Team (Late st Contact Info) Description 01/15/[address] [facility] [address] [place] [address] Kei Chambers, RT Social History Tobacco Use Types Packs/Day Years Used Date Smoking Tobacco: Never Smokeless Tobacco: Never Alcohol Use Standard Drinks/Week Comments Yes 0 (1 standard drink = 0.6 oz pur e alcohol) RARE Comments No Sex and Gender Information Value Date Recorded Sex Assigned at Not on file Legal Sex Female 7:46 AM [employer] Gender Identity Not on file Sexual Orientation Not on file documented as of this encounter Plan of Treatment Not on file documented as of this encounter Visit Diagnoses Not on filedocumented in this encounter Care Teams Client Business Manager Relationship Specialty Start Date End Date Kt Don MD PCP - General Internal Medicine 10/22/19 06/30/22 Zaire Ferguson PA [address] [place] [address] PCP - General Physician Consumer Loan Manager 07/01/22 08/04/22 Zaire Ferguson PA [address] [place] [address] PCP - General Physician Consumer Loan Manager 08/05/22 02/06/25 Ricky Navarro NP [address] [facility] [address] [place] [address] PCP - General Nurse Practitioner 02/07/25 Betty Jha MD PhD Radiation Oncologist Radiation Oncology 12/30/19 Jeff Mason MD PhD Medical Oncologist Medical Oncology 02/18/20 10/02/23 Jamaica Smith MD Surgeon Surgical Oncology 02/18/20 Kevin Randle MD [address] [place] [address] Consulting Physician Cardiology 2/15/24 Renetta Rick MD [address] [place] [address] Surgeon Breast Surgery 09/25/23 01/02/24 Oneal Roberts MD [address] [facility] [address], [place] [id number] [place] [address] Medical Oncologist/Public Service Administrator Medical Oncology 12/04/23 documented as of this encounter
--- OUTSIDE RECORDS SUMMARY | 2025-07-07 08:06 | XMS_ITS | Clinical Summary ---
Author Organization [facility] Address [facility] [place] [address] Care Team Providers Care Fare Enforcement Officer Name Role Phone Betty Jha MD PhD Unavailable Jamaica Smith MD Unavailable [phone] Kevin Randle MD Unavailable [phone] Oneal Roberts MD Unavailable [phone] Ricky Navarro NP Primary Care Provider [phone] Allergies Active Allergy Reactions Criticality Noted Date Comments Azithromycin Flushing (skin) Low 05/23/2023 Flushed and Tachycardic Levofloxacin Palpitations,Flushin g (skin) Low 06/01/2023 Tachycardia with AFib with RVR after IV injection May 2023. flushed and tachycardic Medications evening primrose oil 500 mg capsule Take 3 capsules (1,500 mg total) by mouth nightly Active tolterodine LA (DETROL LA) 4 mg 24 hr capsuleIndicat ions:Urinary Urgency Take 1 capsule (4 mg total) by mouth nightly 08/30/19 20 Active diphenhydrAMIN E (BENADRYL) 25 mg capsule Take 1 tablet/capsul e (25 mg total) by mouth every 6 (six) hours as needed for allergies Active acetaminophen (TYLENOL) 325 mg tablet Take 2 tablets (650 mg total) by mouth every 6 (six) hours as needed for pain Active empagliflozin (JARDIANCE) 25 mg tablet Take 0.5 tablets (12.5 mg total) by mouth loan manager before breakfast 05/23/20 23 Active spironolactone (ALDACTONE) 25 mg tablet Take 0.5 tablets (12.5 mg total) by mouth nightly 06/26/20 23 Active cholecalcifero l (VITAMIN D-3) 4,000 unit tablet Take 1 tablet (4,000 Units total) by mouth daily 06/02/20 23 Active multivit-trade mark examiner als/folic acid (CENTRUM ADULT 50 PLUS ORAL) Take 1 tablet by mouth loan manager before breakfast Active docusate sodium (COLACE) 100 mg capsuleIndicat ions:constipat ion Take 1 capsule (100 mg total) by mouth 2 (two) times a day with a glass of water 20 capsule 11/22/19 24 Active carvediloL (COREG) 25 mg tablet Take 1 tablet (25 mg total) by mouth 2 (two) times a day with meals 01/01/20 24 Active sacubitriL-shola sartan (ENTRESTO) 49-51 mg tabletIndicati ons:chronic heart failure Take 1 tablet by mouth 2 (two) times a day Active aspirin 81 mg enteric coated tablet Take 1 tablet (81 mg total) by mouth daily Active exemestane (AROMASIN) 25 mg tablet Take 1 tablet (25 mg total) by mouth daily Take after a meal. 30 tablet 11 06/16/20 25 026 Active exemestane (AROMASIN) 25 mg tablet Take 1 tablet (25 mg total) by mouth daily Take after a meal. 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 02/04/2022 Encounter for follow-up exam ination after completed treatment for malignant neoplasm 05/07/2020 History of bilateral breast cancer 05/07/2020 Personal history of irradiation 05/07/2020 Malignant neoplasm of upper- outer quadrant of right breast in female, estrogen receptor positive 12/30/2019 Cancer Staging:Pathologic: pT1b, pN0, G1, ER+, [place]+, HER2- - Signed by Chinyere Mccauley MD on 01/05/2020 Malignant neoplasm of overla pping sites of left breast in female, estrogen receptor positive 12/30/2019 Cancer Staging:Pathologic:Stage IA(pT1a, pN0, cM0, G2, ER+, [place]+, HER2-) - Signed by Betty Jha MD PhD on 01/14/2020 Resolved Problems Problem Noted Date Diagnosed Date Resolved Date Abnormal mammogram 11/12/2019 0 Encounters Date Type Department Care Team Description 06/16/2025 Orders Only [facility] Oncology [address] [place] [id number] Oneal Roberts MD 06/06/2025 7:45 AM WOOD [employer]UB NECK WHIPPER Office Visit [facility] Medicine Surgery [address] [place] [phone] Jamaica Smith MD History of bilateral breast cancer (Primary Dx) from Last 3 Months Immunizations Immunization Administration Dates Next Due Pfizer SARS-CoV-2 Monovalent Vaccination (12+ Yrs) PURPLE 12/29/2020,12/08/2020 Tdap 05/31/2024 Surgical History Surgery Date Site/Laterality Comments DILATION AND CURETTAGE OF UTERUS HYSTERECTOMY TONSILLECTOMY THROAT SURGERY cancer removed BREAST BIOPSY 07/17/2004 - 07/16/2005 Right benign BREAST BIOPSY 11/12/2019 Left BREAST BIOPSY 11/12/2019 Left BREAST BIOPSY 11/29/2019 Left BREAST LUMPECTOMY right BREAST LUMPECTOMY left US GUIDED BIOPSY LYMPH NODE SUPERFICIAL LEFT 07/14/2020 N/A BREAST BIOPSY 09/14/2023 Left ANKLE SURGERY 11/29/2020 Left Medical History Medical History Date Comments Personal history of lymphosa rcoma and reticulosarcoma Malignant Lymphoma - (Added by TW Conv) Throat cancer (HCC) History of chemotherapy 2007 THROAT C ANCER Breast cancer (HCC) Heart failure 05/16/2023 Heart disease PONV (postoperative nausea and vomiting) Family History Medical History Relation Name Comments Hypertension Father Kin Stroke Father Kin Diabetes Mother Yolette Heart disease Mother Yolette Breast cancer Mother's Sister 1 Throat cancer Mother's Sister 1 Bladder Cancer Mother's Sister 2 Breast cancer Mother's Sister 2 Anesthesia problems Neg Hx Relation Name Status Comments Father Kin Mother Yolette Mother's Sister 1 Mother's Sister 2 Social History Tobacco Use Types Packs/Day Years Used Date Smoking Tobacco: Never Cigarettes Passive Smoke Exposure: Past Smokeless Tobacco: Never Tobacco Cessation:Counseling Given: Not Answered Alcohol Use Standard Drinks/Week Comments Yes 0 (1 standard drink = 0.6 oz pur e alcohol) RARE AUDIT-C Answer Date Recorded Q1: How often do you have a drink containing alcohol? Never 10/31/2023 Q2: How many drinks containi ng alcohol do you have on a typical day when you are drinking? Patient does not drink Q3: How often do you have si x or more drinks on one occasion? Never 10/31/2023 Personal Safety Answer Date Recorded Have you ever been in or are you currently in a harmful physical or emotional relationship or is someone making you feel afraid or unsafe? Denies 11/22/2023 Comments No Sex and Gender Information Value Date Recorded Sex Assigned at Not on file Legal Sex Female 7:46 AM [employer] WH[employer] Gender Identity Not on file Sexual Orientation Not on file Last Filed Vital Signs Vital Sign Reading Time Taken Comments Blood Pressure 89/55 03/07/2025 8:57 AM CDT Patient states she takes medicine to keep it low. Pulse 76 03/07/2025 8:57 AM CDT Temperature 36.3 C (97.3 F) 03/07/2025 8:57 AM CDT Respiratory Rate 18 03/07/2025 8:57 AM CDT Oxygen Saturation 97% 03/07/2025 8:5 7 AM CDT Inhaled Oxygen Concentration - - Weight 79.8 kg (176 lb) 06/06/2025 7:27 AM [employer] WH[employer] Height 167.6 cm (5' 5.98) 06/06/2025 7 :27 AM [employer] Body Mass Index 28.42 06/06/2025 7:27 AM [employer] WH[employer]PER Plan of Treatment Health Maintenance Due Date Last Done Comments Colon Cancer Screening-Colonoscopy 1966 Depression Screening 1966 Hepatitis C Screening 1966 Hepatitis B Screening 1984 Regular Well Visit/Exam 18-64 1984 Pneumococcal vaccine <65 (1 of 2 - PCV) 1985 Zoster Vaccine (1 of 2) 1985 Covid-19 Vaccine (3 - Pfizer risk series) 01/26/2021 12/29/2020, 12/08/2020 Breast Cancer Screening-Mammogram 08/28/2024 08/28/2023, 07/01/2022, 07/02/2021, Additional history exists Influenza Vaccine (#1) 2025 DTaP/Tdap/Td Vaccine (2 - Td or Tdap) 05/31/2034 05/31/2024 Medical Devices Implanted Type Area Pipe Organ Mechanic Device Identifier Shelf Expiration Date Model / Serial / Lot Clip Breast Network [employer] Partnership Eviva 13cm Identifier Biopsy Site [id number] - [id number] Implanted:Qty: 1 on 09/14/2023 at [facility] Network Chemistry Partnership [id number] 05/09/2024 [facility] / / [id number] Procedures Procedure Name Priority Date/Time Associated Diagnosis Comments SCREENING MAMMOGRAM BILATERAL W DARELL Schedule Routine, Read Routine (OP Routine) 08/28/2023 9:36 AM [employer] WHIPPER Personal history of malignant neoplasm of breast from Last 3 Months or Most Recently Relevant to Health Maintenance Results * Screening Mammogram Bilateral W Darell (08/28/2023 9:36 AM WO[employer] WHIPPER) Anatomical Region Laterality Modality Breast Bilateral Mammography Narrative 08/29/2023 11:34 AM WO[employer] WHIPPER Mammogram Technique: Bilateral Digital Breast Tomosynthesis, Bilateral C-view 2D Screening mammogram. Views obtained: bilateral craniocaudal and bilateral mediolateral oblique. Computer Aided Detection was performed. Mammogram Findings: The present examination has been compared to prior imaging studies performed at [facility] on 07/02/2021, 07/01/2022 and 12/30/2022. There are scattered areas of fibroglandular density. Finding 1: There are post breast conservation therapy changes in both breasts. Finding 2: There are calcifications in the upper outer quadrant of the left breast. Impression: Finding 1: Post breast conservation therapy changes in both breasts are benign. Finding 2: Calcifications in the left breast require additional evaluation. A diagnostic mammogram of the left breast is recommended at this time. OVERALL FINAL ASSESSMENT: BI-RADS CATEGORY 0: Incomplete: Need additional imaging evaluation. Procedure Note Celsa Guerrier MD - 08/29/2023 Mammogram Technique: Bilateral Digital Breast Tomosynthesis, Bilateral C-view 2D Screening mammogram. Views obtained: bilateral craniocaudal and bilateral mediolateral oblique. Computer Aided Detection was performed. Mammogram Findings: The present examination has been compared to prior imaging studies performed at [facility] on 07/02/2021, 07/01/2022 and 12/30/2022. There are scattered areas of fibroglandular density. Finding 1: There are post breast conservation therapy changes in both breasts. Finding 2: There are calcifications in the upper outer quadrant of the left breast. Impression: Finding 1: Post breast conservation therapy changes in both breasts are benign. Finding 2: Calcifications in the left breast require additional evaluation. A diagnostic mammogram of the left breast is recommended at this time. OVERALL FINAL ASSESSMENT: BI-RADS CATEGORY 0: Incomplete: Need additional imaging evaluation. Hilda Gibson NP IMG MAMMO PROCEDURES Fin al Result from Last 3 Months or Most Recently Relevant to Health Maintenance Insurance [facility] Care Teams Fare Enforcement Officer Relationship Specialty Start Date End Date Ricky Navarro NP [address] [place] [address] PCP - General Nurse Practitioner 02/07/25 Betty Jha MD PhD Radiation Oncologist Radiation Oncology 12/30/19 Jamaica Smith MD Surgeon Surgical Oncology 02/18/20 Kevin Randle MD [address] [place] [address] Consulting Physician Cardiology 08/31/23 Oneal Roberts MD [address], [facility] [address] [place] [address] Medical Oncologist/Riding Silks Custodian Medical Oncology 12/04/23
[2025-07-07 08:32] LABS: Hematocrit 47.6 % (37.0-47.0); Hemoglobin 16.1 g/dL (12.0-15.0); Immature Granulocyte Percent A 0.5 % (0-0.5); Lymphocytes Absolute Auto 0.60 K/mm3 (0.9-3.2); Mean Corpuscular HGB Conc 33.8 g/dl (32-36); Mean Corpuscular Hemoglobin 31.1 pg (26-34); Mean Corpuscular Volume 92.1 fl (80-100); Nucleated Red Blood Cells Absolute Auto 0.000 K/mm3 (0.0-0.012); Nucleated Red Blood Cells Perc 0.0 % (0.0-0.2); Platelet Count Result 288 k/mm3 (150-375); Red Blood Count 5.17 M/mm3 (4.2-5.4); White Blood Count 16.5 K/mm3 (4.5-10.0)
[2025-07-07 08:54] LABS: Alanine Aminotransferase 33 U/L (6-35); Albumin Level 4.5 g/dL (3.5-5.1); Alkaline Phosphatase 98 U/L (38-126); Anion Gap 9 mmol/L (4-12); Aspartate Amino Transferase 35 U/L (14-36); Bilirubin,Total 0.5 mg/dL (0.2-1.3); Blood Urea Nitrogen 18 mg/dL (7-17); Calcium 9.6 mg/dL (8.4-10.2); Carbon Dioxide 27 mmol/L (22-30); Chloride 105 mmol/L (98-107); Estimated CRCL calculation 69 ml/min; Estimated Glomerular Filt Rate > 60; Glucose 103 mg/dL (65-110); Lipase 36 U/L (23-300); Potassium 3.9 mmol/L (3.4-5.0); Sodium 141 mmol/L (137-145); Total Protein 7.8 g/dL (6.3-8.2)
[2025-07-07 09:05] LABS: Influenza A QL RT-PCR Negative (Negative); Influenza B QL RT-PCR Negative (Negative); RSV RNA, RT-PCR Negative (Negative); SARS-CoV-2 RNA PCR Negative (Negative)
[2025-07-07 09:25] LABS: Add Urine Microscopic? NO; Appearance Urine Clear (Clear); Glucose Urine UA 3+ mg/dL (Negative); Leukocyte Esterase Ur Negative LEU/UL (Negative); Nitrate Urine Negative (Negative); Specific Grav Ur 1.035 (1.001-1.035)
[2025-07-07] MEDS: LACTATED RINGERS 1,000 ML 999 ML IV CONT ×2 (10:32→13:07)
--- NOTE | 2025-07-07 10:37 | ED.GENADULT ---
HPI - General Adult General Chief complaint: Arrhythmia/Palpitations Stated complaint: palpitations Time Seen by Provider: 07/07/25 08:45 History of Present Illness HPI narrative: 59-year-old female presented emergency department for evaluation for her palpitations and associated lightheaded this and dizziness. Patient states symptoms started this morning. Patient states she did not take her heart medications as she was having some associated nausea with this. Patient denies any chest pain or shortness of breath. Patient was orthostatic positive and patient did have ketones in her urine. Related Data Home Medications ?Medication ?Instructions ?Recorded ?Confirmed ?Last Taken ?Type cholecalciferol (vitamin D3) 10 10 mcg PO QAM 05/02/22 07/01/25 1 Day Ago History mcg (400 unit) capsule ~05/16/23 evening primrose oil 500 mg capsule 500 mg PO DAILY 05/02/22 07/01/25 1 Day Ago History ~05/16/23 spironolactone 25 mg tablet 12.5 mg PO DAILY 08/24/23 07/01/25 Unknown History exemestane 25 mg tablet 25 mg PO DAILY 07/01/25 07/01/25 Unknown History Allergies Allergy/AdvReac Type Severity Reaction Status Date / Time azithromycin Allergy Flushing Verified 07/07/25 08:10 levofloxacin (From Levaquin) Allergy Flushing Verified 07/07/25 08:10 Review of Systems Review of Systems: All systems reviewed & are unremarkable except as noted in HPI and below PMFSH Past Medical History Medical History Urge urinary incontinence Vitamin D deficiency Bladder prolapse Vaginal venereal warts (~1993) removal by laser GERD (gastroesophageal reflux disease) 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 Miscarriage (1985) History of radiation therapy (~2020) 36 treatments for breast cancer Wears glasses Reading glasses History of adverse reaction to anesthesia Breast cancer 36 treatments of radiation Completed end of February 2020 Bilateral ankle fractures Surgical History Surgical History H/O mastectomy (~11/2023) double mastectomy History of hysteroscopy History of tonsillectomy (~2007) Due to B-cell lymphoma History of ankle surgery History of ankle surgery (10/22/20) left ankle--3 pins and mikhail in ankle History of cervical polypectomy (05/16/02) 05/16/02 hscope d&c/polypectomy--irregular bleeding History of dilation and curettage 1986 suction d&c 05/16/02 hscope d&c/polypectomy--irregular bleeding History of hysterectomy (07/11/02) menometrorrhagia/dysmenorrhea/enlarged uterus H/O lumpectomy December 2019 at [facility] (2 lumps on the left, 1 lump on the right) Family History Family History Mother Diabetes mellitus Heart disease Father Cerebrovascular accident Hypertension Sibling , muscular dystrophy Pneumonia Sibling No problems noted. Social History Social History (Updated 03/26/25 @ 14:05 by Mable Hassan Luis Armando) Social History: Patient lives at home with her family. 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 She works for the [employer]. Smoking status: Never smoker Second hand tobacco smoke exposure: Yes Alcohol intake: former Alcohol use details: Couple times per year Substance use: never Substance use type: does not use Lack of Transportation: No Lack of Food: Never True Current Housing: I Have Housing Concerned About Future Housing: No Difficulty Paying Gas/Electric Bills: No Difficulty Paying for Meds: No Currently Unemployed: No Education: Associate Degree Difficulty w/ Childcare or Family Care: No Living arrangements: with family Additional living arrangements comments: /Daughter Occupation/Education: occupation Additional occupation/education comments: [employer] Gender identity (if verbalized by the patient): Female Sexual Orientation (if Verbalized by the Patient): Straight or Heterosexual Spiritual care concerns: No Agree to blood products: Yes Exam Narrative: APPEARANCE: Well appearing, no pain, no distress, well-nourished. HEAD: normocephalic, atraumatic. EYES: PERRLA/EOMI, conjunctivae clear. NOSE: Normal no drainage EARS:TMS clear with good light reflex. THROAT: Pharynx clear, no exudate. NECK: Supple. No adenopathy, no masses. RESPIRATORY: Airway patent, respirations nonlabored. Clear to auscultation bilaterally, no rales, rhonchi, wheezing. CARDIOVASCULAR: Regular rate and rhythm without murmurs rubs or gallops. ABDOMINAL: Soft, nontender, nondistended, normal bowel sounds MUSCULOSKELETAL: Moves all extremities. Strength/ROM intact, No edema, No calf tenderness. NEURO: Alert. Cranial nerves II through XII intact. Good gait. Good coordination SKIN: Warm, dry. Normal Color Course Vital Signs Vital signs: Vital Signs Temperature 97.8 F 07/07/25 08:05 Pulse Rate 97 07/07/25 08:05 Respiratory Rate 15 07/07/25 08:05 Blood Pressure 125/81 07/07/25 08:05 Pulse Oximetry 99 07/07/25 08:05 Oxygen Delivery Room Air 07/07/25 08:05 Temperature 100.0 F H 07/07/25 15:45 Pulse Rate 110 H 07/07/25 15:17 Respiratory Rate 22 H 07/07/25 15:17 Blood Pressure 117/70 07/07/25 15:16 Pulse Oximetry 99 07/07/25 15:16 Oxygen Delivery Room Air 07/07/25 08:05 [facility] Narrative Medical decision making narrative: 59-year-old female presents to the emergency department for evaluation for lightheaded dizziness. Patient is afebrile but does have a leukocytosis of 16.5 hemoglobin 16.1. Patient has no significant acute abnormalities on her CMP. Patient did have positive ketones in her urine and patient was orthostatic positive. Patient be treated with 1 L of lactated Ringer's. patient was no longger orthostatic after the 2 LR. On further re-evaluation patient states she does feel improved. Patient was able to ambulate to the bathroom without issues. Patient and family of the results of the workup they are comfortable plan for discharge and close follow-up. All questions concerns were addressed. Differential Diagnosis Differential Diagnosis: dehydration, vertigo, viral syndrome, nausea vomiting, acute kidney injury, urinary tract infection, COVID, RSV, influenza Lab Data [facility] Lab Attestation statement: I personally reviewed the patient's lab results. 07/07/25 08:20 07/07/25 08:20 Labs: Lab Results 07/07/25 07/07/25 07/07/25 Range/Units 08:14 08:20 09:18 WBC 16.5 H (4.5-10.0) K/mm3 RBC 5.17 (4.2-5.4) M/mm3 Hgb 16.1 H (12.0-15.0) g/dL Hct 47.6 H (37.0-47.0) % MCV 92.1 (80-100) fl MCH 31.1 (26-34) pg MCHC 33.8 (32-36) g/dl RDW 12.7 (11.5-14.5) % Plt Count 288 (150-375) k/mm3 MPV 9.8 (7.4-10.4) fl Immature Gran % (Auto) 0.5 (0-0.5) % Neut % (Auto) 89.8 H (45.5-73.1) % Lymph % (Auto) 3.6 L (18.3-44.2) % Angelina % (Auto) 5.2 (2.6-8.5) % Eos % (Auto) 0.6 (0-4.4) % Baso % (Auto) 0.3 (0.2-1.2) % Lymph # (Auto) 0.60 L (0.9-3.2) K/mm3 Angelina # (Auto) 0.9 H (0.1-0.6) K/mm3 Eos # (Auto) 0.1 (0-0.3) K/mm3 Baso # (Auto) 0.1 (0.0-0.1) K/mm3 Abs Immat Gran (auto) 0.08 H (0.00-0.031) K/mm3 Absolute Neuts (auto) 14.8 H (1.3-6.7) K/mm3 Absolute Nucleated RBC 0.000 (0.0-0.012) K/mm3 Nucleated RBC % 0.0 (0.0-0.2) % Sodium 141 (137-145) mmol/L Potassium 3.9 (3.4-5.0) mmol/L Chloride 105 (98-107) mmol/L Carbon Dioxide 27 (22-30) mmol/L Anion Gap 9 (4-12) mmol/L BUN 18 H (7-17) mg/dL Creatinine 0.83 (0.7-1.0) mg/dL Estim Creat Clear Calc 69 ml/min Estimated GFR > 60 (59 - ) Glucose 103 (65-110) mg/dL POC Capillary Glucose 121 H (65-105) mg/dl Calcium 9.6 (8.4-10.2) mg/dL Total Bilirubin 0.5 (0.2-1.3) mg/dL AST 35 (14-36) U/L ALT 33 (6-35) U/L Alkaline Phosphatase 98 (38-126) U/L Total Protein 7.8 (6.3-8.2) g/dL Albumin 4.5 (3.5-5.1) g/dL Lipase 36 (23-300) U/L Urine Color Yellow (Yellow) Urine Appearance Clear (Clear) Urine pH 5.5 (5.0-9.0) Ur Specific [place] 1.035 (1.001-1.035) Urine Protein Negative (Negative) mg/dL Urine Glucose (UA) 3+ H (Negative) mg/dL Urine Ketones Trace H (Negative) mg/dL Ur Blood (Man) Negative (Negative) Urine Nitrate Negative (Negative) Urine Bilirubin Negative (Negative) Urine Urobilinogen 0.2 (<2.0) mg/dL Leukocyte Esterase Rfl Negative (Negative) GIA/UL Influenza A (RT-PCR) Negative (Negative) Influenza B (RT-PCR) Negative (Negative) RSV (RT-PCR) Negative (Negative) SARS-CoV-2 RNA (RT-PCR) Negative (Negative) Discharge Plan Discharge Clinical Impression: Nausea & vomiting Patient Disposition: Home Condition: Stable Instructions: Antibiotic Form, Acute Nausea and Vomiting (DC) Additional Instructions: Clear liquid diet for the next 1-3 days. Zofran as needed for nausea control. Have close follow-up with your physicians. If you have any worsening symptoms then please call or return to the emergency department. Patient Language: Korean Prescriptions: New ondansetron 4 mg tablet,disintegrating 4 mg PO Q8H PRN (Reason: nausea and vomiting) Qty: 14 0RF No Action evening primrose oil 500 mg capsule 500 mg PO DAILY Rx Instructions: give with meal/snack cholecalciferol (vitamin D3) 10 mcg (400 unit) capsule 10 mcg PO QAM spironolactone 25 mg tablet 12.5 mg PO DAILY exemestane 25 mg tablet 25 mg PO DAILY Rx Instructions: must administer after a meal aspirin [Children's Aspirin] 81 mg Tablet,Chewable 81 mg PO DAILY@0800 Qty: 30 0RF carvedilol 3.125 mg tablet 3.125 mg PO BID Qty: 60 0RF Rx Instructions: must administer with a meal/food Jardiance 10 mg tablet 10 mg PO DAILY Qty: 30 0RF Entresto 24-26 mg tablet 1 tablet PO BID Qty: 60 0RF tolterodine 4 mg capsule,extended release 24hr 4 mg PO QHS Qty: 90 2RF Follow-up/Referrals: Ricky Navarro APRN [Primary Care Provider, Internal Medicine]
--- OUTSIDE RECORDS SUMMARY | 2025-07-07 11:13 | XMS_ITS ---
Author Organization [facility] Address [address] [place] [id number] Care Team Providers Care Classer Name Role Phone Betty Jha MD PhD Unavailable [phone] Jamaica Smith MD Unavailable [phone] Kevin Randle MD Unavailable [phone] Oneal Roberts MD Unavailable [phone] Ricky Navarro NP Primary Care Provider [phone] Active Problems Problem Noted Date Diagnosed Date [...] 12/30/2019 Cancer Staging:Pathologic: pT1b, pN0, G1, ER+, [place]+, HER2- - Signed by Chinyere Mccauley MD on 01/05/2020 Malignant neoplasm of overla pping sites of left breast in female, estrogen receptor positive 12/30/2019 Cancer Staging:Pathologic:Stage IA(pT1a, pN0, cM0, G2, ER+, [place]+, HER2-) - Signed by Betty Jha MD [...]
--- OUTSIDE RECORDS SUMMARY | 2025-07-07 11:13 | XMS_ITS | Clinical Summary ---
Author Organization [facility] Address Count includes the [facility] [place] [address] Care Team Providers Care Deboning Team Leader Name Role Phone Betty Jha MD PhD Unavailable [phone] Jamaica Smith MD Unavailable [phone] Kevin Randle MD Unavailable [phone] Oneal Roberts MD Unavailable [phone] Ricky Navarro NP Primary Care Provider [phone] Allergies Active Allergy Reactions Criticality Noted Date [...] 0.5 tablets (12.5 mg total) by mouth vice president of operations before breakfast 05/23/20 23 Active spironolactone (ALDACTONE) 25 mg tablet Take 0.5 tablets (12.5 mg total) by mouth nightly 06/26/20 23 Active cholecalcifero l (VITAMIN D-3) 4,000 unit tablet Take 1 tablet (4,000 Units total) by mouth daily 06/02/20 23 Active multivit-computer forensic examiner als/folic acid (CENTRUM ADULT 50 PLUS ORAL) Take 1 tablet by mouth vice president of operations before breakfast Active docusate sodium (COLACE) 100 [...] left female breast 024 Bone disorder 02/04/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 02/04/2022 Encounter for follow-up exam ination after completed treatment for malignant neoplasm 05/07/2020 History of bilateral breast cancer 05/07/2020 Personal history of irradiation 05/07/2020 Malignant neoplasm of upper- outer quadrant of right breast in female, estrogen receptor positive 12/30/2019 Cancer Staging:Pathologic: pT1b, pN0, G1, ER+, OR+, HER2- - Signed by Chinyere Mccauley MD on 01/05/2020 Malignant neoplasm of overla pping sites of left breast in female, estrogen receptor positive 12/30/2019 Cancer Staging:Pathologic:Stage IA(pT1a, pN0, cM0, G2, ER+, OR+, HER2-) - Signed by Betty Jha MD PhD on 01/14/2020 Resolved Problems Problem Noted Date Diagnosed Date Resolved Date Abnormal mammogram 11/12/2019 0 Encounters Date Type Department Care Team Description 06/16/2025 Orders Only [facility] [address] [place] [phone] Oneal Roberts MD 06/06/2025 7:45 AM SURGERY TEACHER Office Visit [facility] Medicine Surgery [address] [place] [phone] Jamaica Smith MD History of bilateral breast [...] on file Legal Sex Female 7:46 AM SURGERY TEACHER Gender Identity Not on file Sexual Orientation [...] 79.8 kg (176 lb) 06/06/2025 7:27 AM SURGERY TEACHER Height 167.6 cm (5' 5.98) 06/06/2025 7 :27 AM SURGERY TEACHER Body Mass Index 28.42 06/06/2025 7:27 AM SURGERY TEACHER Plan of Treatment Health Maintenance Due Date [...] 05/31/2034 05/31/2024 Medical Devices Implanted Type Area Production Cloth Cutter Device Identifier Shelf Expiration Date Model / Serial / Lot Clip Breast [employer] Eviva 13cm Identifier Biopsy Site [id number] - [id number] Implanted:Qty: 1 on 09/14/2023 at [facility] [place] [facility] [employer] [id number] 05/09/2024 [facility]EVIV A-13 / / [id number] Procedures Procedure Name Priority Date/Time Associated Diagnosis Comments SCREENING MAMMOGRAM BILATERAL W DARELL Schedule Routine, Read Routine (OP Routine) 08/28/2023 9:36 AM SURGERY TEACHER Personal history of malignant neoplasm of breast from Last 3 Months or Most Recently Relevant to Health Maintenance Results * Screening Mammogram Bilateral W Darell (08/28/2023 9:36 AM SURGERY TEACHER) Anatomical Region Laterality Modality Breast Bilateral Mammography Narrative 08/29/2023 11:34 AM SURGERY TEACHER Mammogram Technique: Bilateral Digital Breast Tomosynthesis, Bilateral C-view 2D Screening mammogram. Views obtained: bilateral craniocaudal and bilateral mediolateral oblique. Computer Aided Detection was performed. Mammogram Findings: The present examination has been compared to prior imaging studies performed at [facility] on 07/02/2021, 07/01/2022 and 12/30/2022. [...] compared to prior imaging studies performed at [facility] on 07/02/2021, 07/01/2022 and 12/30/2022. [...] Most Recently Relevant to Health Maintenance Insurance [facility] Address: [facility] [id number] [place] [address] [facility] Address: [address] [place] [address] [facility] Address: [address] [place] [address] Care Teams Deboning Team Leader Relationship Specialty Start Date End Date Ricky Navarro NP [address] [place] [address] PCP - General Nurse Practitioner 02/07/25 Betty Jha MD PhD Radiation Oncologist Radiation Oncology 12/30/19 Jamaica Smith MD Surgeon Surgical Oncology 02/18/20 Kevin Randle MD [address] [place] [address] Consulting Physician Cardiology 08/31/23 Oneal Roberts MD [address], [facility] [address] [place] [address] Medical Oncologist/Supervisor Sterile Processing Medical Oncology 12/04/23
--- OUTSIDE RECORDS SUMMARY | 2025-07-07 11:13 | XMS_ITS | Encounter Summary ---
Author Organization [facility] Address [address] [place] [address] Care Team Providers Care Sweatband Decorating Machine Operator Name Role Phone Kt Don MD Primary Care Provider [phone] Betty Jha MD PhD Unavailable [phone] Jeff Mason MD PhD Unavailable [phone] Jamaica Smith MD Unavailable [phone] Zaire Ferguson Primary Care Provider Zaire Ferguson Primary Care Provider Kevin Randle MD Unavailable [phone] Renetta Rick MD Unavailable [phone] Oneal Roberts MD Unavailable [phone] Ricky Navarro NP Primary Care Provider [phone] Encounter Details Date Type Department Care Team (Late st Contact Info) Description 01/15/2020 Telephone [facility] [address] [place] [address] Kei Chambers, RT Social History Tobacco Use Types Packs/Day Years Used Date Smoking Tobacco: Never Smokeless Tobacco: Never Alcohol Use Standard Drinks/Week Comments Yes 0 (1 standard drink = 0.6 oz pur e alcohol) RARE Comments No Sex and Gender Information Value Date Recorded Sex Assigned at Not on file Legal Sex Female 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 Gender Identity Not on file Sexual Orientation Not on file documented as of this encounter Plan of Treatment Not on file documented as of this encounter Visit Diagnoses Not on filedocumented in this encounter Care Teams Sweatband Decorating Machine Operator Relationship Specialty Start Date End Date Kt Don MD PCP - General Internal Medicine 10/22/19 06/30/22 Zaire Ferguson PA [address] [place] [address] PCP - General Physician Multimedia Author 07/01/22 08/04/22 Zaire Ferguson PA [address] [place] [address] PCP - General Physician Multimedia Author 08/05/22 02/06/25 Ricky Navarro NP [address] [facility] [address] [place] [address] PCP - General Nurse Practitioner 02/07/25 Betty Jha MD PhD Radiation Oncologist Radiation Oncology 12/30/19 Jeff Mason MD PhD Medical Oncologist Medical Oncology 02/18/20 10/02/23 Jamaica Smith MD Surgeon Surgical Oncology 02/18/20 Kevin Randle MD [address] [place] [id number] Consulting Physician Cardiology 2/15/24 Renetta Rick MD [address], [address] [place] [address] Surgeon Breast Surgery 09/25/23 01/02/24 Oneal Roberts MD [address] [facility] [address], [place] [id number] [place] [address] Medical Oncologist/Base Loader Medical Oncology 12/04/23 documented as of this encounter
[2025-07-07] MEDS: METOCLOPRAMIDE HCL INJ 10 MG/2 ML VIAL IV PUSH (15:20)
== END 2025-07-07 15:47 | disposition home or self-care (01) ==
PROVIDERS: Emergency Provider Emergency Medicine; PCP Nurse Practitioner
DX: R11.2 Nausea with vomiting, unspecified (principal); Z20.822 Contact with and (suspected) exposure to COVID-19; E55.9 Vitamin D deficiency, unspecified; K21.9 Gastro-esophageal reflux disease without esophagitis; Z85.3 Personal history of malignant neoplasm of breast; Z92.3 Personal history of irradiation; Z85.72 Personal history of non-Hodgkin lymphomas; Z90.13 Acquired absence of bilateral breasts and nipples; Z90.710 Acquired absence of both cervix and uterus; R94.31 Abnormal electrocardiogram [ECG] [EKG]; Z79.82 Long term (current) use of aspirin; Z79.84 Long term (current) use of oral hypoglycemic drugs; Z79.899 Other long term (current) drug therapy
CPT/HCPCS: 36415; 80053; 81003; 82948; 83690; 85025; 87637; 93005; 96361; 96374; 99284; J2765; J7120